=== PATIENT | male | born 1940 | race Caucasian/White ===

== ENCOUNTER 2018-07-09 07:53 | Day surgery (SDC) | payer OTHER ==
[2018-07-02 14:15] VITALS: BMI 24.6
[2018-07-09] MEDS ORDERED: PROPOFOL 20 ML ONE (08:07)
[2018-07-09 10:45] VITALS: TEMP 97.6
[2018-07-09 10:49] VITALS: BP 139/81; PULSE 68
--- NOTE | 2018-07-10 16:56 | PATH ---
Surgical Pathology Report Patient Name: TIMMY SINGH [facility]. Rec. #: [id number] /Age/Gender: 1940 (Age: 78) / M Account: [id number] Location: [facility]SURGERY Taken: 07/09/2018 Received: 07/09/2018 Reported: 07/10/2018 Physicians: Jose Luis Bishop M.D. Specimen(s) Received A: BX DUODENUM B: BX ANTRUM Clinical History GERD Postoperative diagnosis: Moderate gastritis, duodenitis, duodenal erosions Final Diagnosis A. DUODENUM, BIOPSY: DUODENAL MUCOSA WITH MILD ACUTE AND CHRONIC DUODENITIS. B. STOMACH, ANTRUM, BIOPSY: GASTRIC ANTRAL MUCOSA WITH SEVERE CHRONIC ACTIVE GASTRITIS. IMMUNOHISTOCHEMICAL STAIN FOR H. PYLORI IS POSITIVE (NUMEROUS). Electronically Signed Beba Servin M.D. Gross Description A. Received in formalin, labeled "duodenum" is a sanchez, irregular portion of soft tissue measuring 0.3 cm. in greatest dimension. The specimen is submitted in toto in one cassette. B. Received in formalin, labeled "antrum" are 2 sanchez, irregular portions of soft tissue measuring 0.2 and 0.4 cm. in greatest dimension. The specimens are submitted in toto in one cassette. 07/09/2018 saudi07/09/2018
== END 2018-07-09 10:35 | disposition home or self-care (01) ==
LOC: FASU-ENDO 07:53
PROVIDERS: ATTEND Internal Medicine Gastroenterology
PROC: 0DB98ZX Excision of Duodenum, Via Natural or Artificial Opening Endoscopic, Diagnostic (ICD-10-PCS; principal; 2018-07-09 09:36)
PROC: 0DB68ZX Excision of Stomach, Via Natural or Artificial Opening Endoscopic, Diagnostic (ICD-10-PCS; 2018-07-09 09:36)
DX: K29.50 Unspecified chronic gastritis without bleeding (principal); B96.81 Helicobacter pylori [H. pylori] as the cause of diseases classified elsewhere; K57.80 Diverticulitis of intestine, part unspecified, with perforation and abscess without bleeding; R12 Heartburn
CPT/HCPCS: 82962; 88305-TC; 88342-TC

== ENCOUNTER 2018-10-23 17:31 | Inpatient (IN) | payer OTHER ==
--- NOTE | 2018-10-23 18:05 | PDOC ---
Rapid Medical Evaluation Chief Complaint: Edema Time Seen by Provider: 10/23/18 17:45 Medical Evaluation: Allergies Allergy/AdvReac Type Severity Reaction Status Date / Time No Known Drug Allergies Allergy Verified 10/23/18 17:38 Vital Signs Temp Pulse Resp BP Pulse Ox 97.2 F L 93 H 18 107/63 96 10/23/18 17:39 10/23/18 17:39 10/23/18 17:39 10/23/18 17:39 10/23/18 17:39 10/23/18 18:02 Pt c/o: ble edema, left hand swelling, mild sob, ? chf Exam: 2 + ble edema, 2+ rt hand swelling, 96 % on ra. LCTA Plan: cxr, labs, ekg, ua Discharge Disposition - Diagnosis Edema - Referrals - Patient Instructions - Post Discharge Activity
[2018-10-23 18:36] LABS: BASO % 0.8 % (0-2.0); EOS % 3.1 % (0-4.5); HEMATOCRIT 44.1 % (35.4-49); HEMOGLOBIN 15.1 GM/dL (11.7-16.9); LYMPH % 20.1 % (8-40); MCH 31.1 pg (25.7-33.7); MCHC 34.2 g/dl (32.0-35.9); MEAN CELL VOLUME 90.9 fl (80-96); MEAN PLT VOLUME 8.9 fl (7.5-11.1); MONO % 10.4 % (3.8-10.2); NEUT % 65.6 % (42.8-82.8); PLATELET COUNT 250 K/MM3 (134-434); RBC 4.85 M/mm3 (4.00-5.60); RDW 14.5 % (11.9-15.9); WHITE BLOOD COUNT 5.7 K/mm3 (4.0-10.0)
[2018-10-23 19:05] LABS: ALBUMIN 1.6 g/dl (3.4-5.0); ALK PHOS 93 U/L (45-117); BILIRUBIN,TOTAL 0.7 mg/dL (0.2-1); BLOOD UREA NITROGEN 43 mg/dL (7-18); CALCIUM 8.8 mg/dL (8.5-10.1); CHLORIDE 105 mmol/L (98-107); CO2 24 mmol/L (21-32); CREATININE 0.9 mg/dL (0.55-1.3); GLUCOSE,RANDOM 124 mg/dL (74-106); SGPT/ALT 15 U/L (13-61); SODIUM 137 mmol/L (136-145); TOT PROT 4.7 g/dl (6.4-8.2)
[2018-10-23 19:06] LABS: ANION GAP 7 MMOL/L (8-16); SGOT/AST 21 U/L (15-37)
--- NOTE | 2018-10-23 19:41 | PDOC ---
History of Present Illness <Lori Romero - Last Filed: 10/24/18 02:00> - General History Source: Patient Exam Limitations: No Limitations - History of Present Illness Initial Comments: 10/23/18 19:41 78yM hx of afib on xerolto, CHF sp PM, CVA, htn, HL, thyroid disease, presents with a complaint of edema. The patient states that he has had increasing edema over the last several weeks that comes and goes sometimes improves with Lasix. The patient states that he has had his Lasix dose increased from 40 mg daily to 40 mg twice a day over the last 2 weeks with some mild improvement. He endorses some difficulty walking due to his chronic back pain as well as mild shortness of breath denies any associated chest pain, nausea, vomiting, diaphoresis, abdominal Pain, back pain, lightheadedness, orthopnea patient notes that his swelling is worse in his legs as well as his hands. Denies any fever, chills, cough, hemoptysis. PMD: Dr. Obregon Network Engineer Administrator: Dr. Grace <Remberto Nava - Last Filed: 10/24/18 03:54> - General Chief Complaint: Edema Stated Complaint: WEAKNESS Time Seen by Provider: 10/23/18 17:45 Past History <Lori Romero - Last Filed: 10/24/18 02:00> - Past Medical History Anemia: No Asthma: No Cancer: No Cardiac Disorders: Yes ([place], pacemaker) CVA: Yes (2014) COPD: No CHF: No Dementia: No Diabetes: Yes GI Disorders: Yes (C/O BLOOD IN EFFIE X3 LAST WEEK) Disorders: No HTN: Yes Hypercholesterolemia: Yes Liver Disease: No Seizures: No Thyroid Disease: Yes - Surgical History Abdominal Surgery: No Appendectomy: No Cardiac Surgery: Yes (bypass, pacemaker) Cholecystectomy: No Lung Surgery: No Neurologic Surgery: No Orthopedic Surgery: No - Immunization History Immunization Up to Date: Yes - Suicide/Smoking/Psychosocial Hx Smoking History: Never smoked Have you smoked in the past 12 months: No Number of Cigarettes Smoked Daily: 0 Hx Alcohol Use: No Drug/Substance Use Hx: No Substance Use Type: None Hx Substance Use Treatment: No <Remberto Nava - Last Filed: 10/24/18 03:54> - Past Medical History Allergies/Adverse Reactions: Allergies Allergy/AdvReac Type Severity Reaction Status Date / Time No Known Drug Allergies Allergy Verified 10/23/18 17:38 Home Medications: Ambulatory Orders Carvedilol 25 mg PO BID tablet 01/09/17 Spironolactone 25 mg PO DAILY tablet 01/09/17 Multivitamins [Multivit ([facility] Formulary)] 1 tab PO DAILY 01/06/18 Rivaroxaban [Xarelto -] 20 mg PO DAILY 01/06/18 Ubidecarenone [Coq-10] 1 each PO BID 01/06/18 Levothyroxine [Synthroid -] 50 mcg PO DAILY 01/09/18 Sacubitril/Valsartan [Entresto 24 mg-26 mg Tablet] 1 each PO BID 07/02/18 Review of Systems - Review of Systems Able to Perform ROS?: Yes Comments:: 10/23/18 20:31 Constitutional - no reported Fever, Chills, HEENT: no reported vision changes, sore throat Respiratory: +Sob no reported cough, hemoptysis Cardiac: no reported chest pain, palpitations, light headedness, Abd/GI: no reported abd pain, nausea, vomiting, blood per rectum, melena, diarrhea : no reported dysuria, frequency, discharge Musculskelatal - +edema no reported back pain, joint swelling skin - no reported bruising, erythema, rash neurological: no reported headache, numbness, focal weakness, tingling, ataxia, hematologic: no reported easy bruising, easy bleeding <Remberto Nava - Last Filed: 10/24/18 03:54> *Physical Exam - Vital Signs Last Vital Signs Temp Pulse Resp BP Pulse Ox 97.2 F L 93 H 18 107/63 96 10/23/18 17:39 10/23/18 17:39 10/23/18 17:39 10/23/18 17:39 10/23/18 17:39 <Lori Romero - Last Filed: 10/24/18 02:00> - Vital Signs Last Vital Signs Temp Pulse Resp BP Pulse Ox 97.2 F L 93 H 18 107/63 96 10/23/18 17:39 10/23/18 17:39 10/23/18 17:39 10/23/18 17:39 10/23/18 17:39 - Physical Exam Comments: 10/23/18 20:28 GENERAL: The patient is awake, alert, and fully oriented, Nontoxic - in no acute distress. HEAD: Normocephalic, atraumatic. EYES: extraocular movements intact, sclera anicteric, conjunctiva clear. ENT: Normal voice, Moist mucous membranes. NECK: Normal range of motion, supple LUNGS: Diminished breath sounds at the right base, speaking complete sentences without shortness of breath or any distress HEART: Irregularly irregular, PM in L chest ABDOMEN: Soft, nontender, normoactive bowel sounds. No guarding, no rebound. . No CVA tenderness EXTREMITIES: Normal range of motion, pitting edema in the hand as well as the lower extremities +1, no Homans, no calf tenderness NEUROLOGICAL: No facial assymetry, Normal speech, PSYCH: Normal mood, normal affect. SKIN: Warm, Dry, normal turgor, <Remberto Nava - Last Filed: 10/24/18 03:54> Moderate Sedation - Procedure Monitoring Vital Signs: Procedure Monitoring Vital Signs Temperature 97.2 F L 10/23/18 17:39 Pulse Rate 93 H 10/23/18 17:39 Respiratory Rate 18 10/23/18 17:39 Blood Pressure 107/63 10/23/18 17:39 O2 Sat by Pulse Oximetry (%) 96 10/23/18 17:39 <Lori Romero - Last Filed: 10/24/18 02:00> - Procedure Monitoring Vital Signs: Procedure Monitoring Vital Signs Temperature 97.2 F L 10/23/18 17:39 Pulse Rate 93 H 10/23/18 17:39 Respiratory Rate 18 10/23/18 17:39 Blood Pressure 107/63 10/23/18 17:39 O2 Sat by Pulse Oximetry (%) 96 10/23/18 17:39 <Tae Navaan - Last Filed: 10/24/18 03:54> Heart Score/ECG Review - ECG Impressions Comment:: 10/24/18 03:50 Twelve-lead EKG was performed and reviewed by me. Atrial sensed ventricualrpaced rhythm rate of 97 <BrandyRemberto - Last Filed: 10/24/18 03:54> ED Treatment Course - LABORATORY CBC & Chemistry Diagram: 10/23/18 18:08 10/23/18 18:08 - ADDITIONAL ORDERS Additional order review: Laboratory Results 10/23/18 10/23/18 10/23/18 18:08 18:08 18:08 Sodium 137 Potassium 5.0 Chloride 105 Carbon Dioxide 24 Anion Gap 7 L BUN 43 H Creatinine 0.9 Creat Clearance w eGFR > 60 Random Glucose 124 H Calcium 8.8 Total Bilirubin 0.7 AST 21 ALT 15 Alkaline Phosphatase 93 Creatine Kinase 196 Creatine Kinase Index 4.5 CK-MB (CK-2) 8.9 H Troponin I < 0.02 B-Natriuretic Peptide 96023.2 H Total Protein 4.7 L Albumin 1.6 L Urine Color Urine Appearance Urine pH Ur Specific [place] Urine Protein Urine Glucose (UA) Urine Ketones Urine Blood Urine Nitrite Urine Bilirubin Urine Urobilinogen Ur Leukocyte Esterase Urine WBC (Auto) Urine RBC (Auto) Ur Epithelial Cells Urine Bacteria Hyaline Casts Urine Mucus 10/23/18 17:49 Sodium Potassium Chloride Carbon Dioxide Anion Gap BUN Creatinine Creat Clearance w eGFR Random Glucose Calcium Total Bilirubin AST ALT Alkaline Phosphatase Creatine Kinase Creatine Kinase Index CK-MB (CK-2) Troponin I B-Natriuretic Peptide Total Protein Albumin Urine Color Yellow Urine Appearance Clear Urine pH 6.0 Ur Specific [place] 1.012 Urine Protein 3+ H Urine Glucose (UA) 1+ H Urine Ketones Negative Urine Blood 1+ H Urine Nitrite Negative Urine Bilirubin Negative Urine Urobilinogen Negative Ur Leukocyte Esterase Negative Urine WBC (Auto) 2 Urine RBC (Auto) 10 Ur Epithelial Cells Rare Urine Bacteria Rare Hyaline Casts 33 Urine Mucus Rare 10/23/18 18:08 RBC 4.85 MCV 90.9 MCHC 34.2 RDW 14.5 MPV 8.9 Neutrophils % 65.6 Lymphocytes % 20.1 Monocytes % 10.4 H Eosinophils % 3.1 D Basophils % 0.8 - RADIOLOGY Radiograph Interpretation: EXAM: CT chest without contrast IMAGES:[id number] DATE OF EXAM: 2018-10-24 00:41:30 REASON FOR EXAM: Shortness of breath COMPARISON: None Findings: Large right and tiny left pleural effusions. Mild pulmonary edema. 3 mm right upper lobe nodule. Scattered atelectasis and fibrotic changes in the remainder of the lungs. No obvious infiltrates. No pneumothorax. Cardiomegaly without significant pericardial effusion. Mild anasarca. Mild bilateral gynecomastia. Cholelithiasis. Overall findings suggestive of mild CHF. THIS DOCUMENT HAS BEEN ELECTRONICALLY SIGNED Bowen Morales Vanson , MD 10/24/2018 01:05 EST Documentation prepared by Lori Romero, acting as medical record administrator for Remberto Nava MD - Medications Given in the ED: ED Medications Discontinued Medications Generic Name Dose Route Start Last Admin Trade Name Aline PRN Reason Stop Dose Admin Acetaminophen 975 mg 10/23/18 21:38 10/23/18 22:53 Tylenol - PO 10/23/18 21:39 975 mg ONCE ONE Administration Furosemide 40 mg 10/23/18 20:07 10/23/18 20:27 Lasix Injection - IVPUSH 10/23/18 20:08 40 mg ONCE ONE Administration <Lori Romero - Last Filed: 10/24/18 02:00> - LABORATORY CBC & Chemistry Diagram: 10/23/18 18:08 10/23/18 18:08 - ADDITIONAL ORDERS Additional order review: Laboratory Results 10/23/18 10/23/18 10/23/18 18:08 18:08 18:08 Sodium 137 Potassium 5.0 Chloride 105 Carbon Dioxide 24 Anion Gap 7 L BUN 43 H Creatinine 0.9 Creat Clearance w eGFR > 60 Random Glucose 124 H Calcium 8.8 Total Bilirubin 0.7 AST 21 ALT 15 Alkaline Phosphatase 93 Creatine Kinase 196 Creatine Kinase Index 4.5 CK-MB (CK-2) 8.9 H Troponin I < 0.02 B-Natriuretic Peptide 91583.2 H Total Protein 4.7 L Albumin 1.6 L 10/23/18 18:08 RBC 4.85 MCV 90.9 MCHC 34.2 RDW 14.5 MPV 8.9 Neutrophils % 65.6 Lymphocytes % 20.1 Monocytes % 10.4 H Eosinophils % 3.1 D Basophils % 0.8 <Remberto Nvaa - Last Filed: 10/24/18 03:54> Medical Decision Making - Medical Decision Making 10/23/18 20:33 Differential for the patient's symptoms includes ACS, acute on chronic CHF, pneumonia The patient's blood work was obtained in R knee, his blood work is unremarkable beside elevated BNP. His chest x-ray no significant signs of congestion, + cardiomegaly. We'll give the patient a dose of Lasix and we'll reassess if the patient is still short of breath or dyspneic will admit for further management 10/24/18 02:[address] reveals a large right pleural effusion, will admit the patient for further management of CHF and pleural effusion case was discussed with CARE ATTENDANT agree with admissino to [facility] Case discussed in detail with admitting physician including history, physical exam and ancillary studies. Admitting physician has assumed care for the patient, will follow all pending diagnostics and will complete the evaluation and treatment. <Remberto Nava - Last Filed: 10/24/18 03:54> *DC/Admit/Observation/Transfer <Lori Romero - Last Filed: 10/24/18 02:00> - Discharge Dispostion Decision to Admit order: Yes <Remberto Nava - Last Filed: 10/24/18 03:54> Diagnosis at time of Disposition: Pleural effusion on right Edema Qualifiers: Edema type: unspecified Qualified Code(s): R60.9 - Edema, unspecified Congestive heart failure Qualifiers: Heart failure type: other Qualified Code(s): I50.9 - Heart failure, unspecified - Discharge Dispostion Condition at time of disposition: Stable
[2018-10-23] MEDS ORDERED: FUROSEMIDE 40 MG/4 ML INJECTABLE VIAL IVPUSH ONE (20:07)
[2018-10-23] MEDS ORDERED: FUROSEMIDE 40 MG/4 ML INJECTABLE VIAL ONE (20:20)
[2018-10-23] MEDS ORDERED: ACETAMINOPHEN 325 MG TABLET (FP) PO ONE (21:38)
[2018-10-23] MEDS ORDERED: ACETAMINOPHEN 325 MG TABLET (FP) ONE (22:45)
[2018-10-23 23:14] LABS: URINE APPEARANCE CLEAR; URINE BILIRUBIN NEGATIVE (<2.0 mg/dL); URINE COLOR YELLOW; URINE GLUCOSE (UA) 1+ (NEGATIVE); URINE KETONE NEGATIVE (NEGATIVE); URINE LEUK ESTERASE NEGATIVE (NEGATIVE); URINE NITRITE NEGATIVE (NEGATIVE); URINE PROTEIN 3+ (NEGATIVE); URINE UROBILINOGEN NEGATIVE mg/dL (0.2-1.0)
[2018-10-23 23:25] LABS: EPI CELLS RARE /HPF (FEW); URINE BACTERIA RARE /hpf (NONE SEEN); URINE HYALINE CAST 33 /lpf; URINE MUCUS RARE
--- NOTE | 2018-10-24 02:21 | HP ---
Admitting History and Physical - Primary Care Physician PCP: Dayo Grace - Admission Chief Complaint: SOB, Upper and Lower Extremity Swelling History of Present Illness: This is a 78 y/o man with a past medical history of Afib (on Xarelto), CHF, HTN , HLD, Thyroid, CVA (no residual), Spinal Stenosis, DJD, WAINWRIGHT. Who presents to the ED for SOB, upper and lower extremity swelling x several weeks. The patient' s reports that the Lasix was changed to BID secondary to increased edema. The patient reports increased SOB, [place] worse today. Patient denies fever, chills , dizziness, CP, palpitations, AP, N/V/D, constipation, dysuria. 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 Cardiovascular: Yes: AFIB, CHF, HTN, Hyperlipdemia Musculoskeletal: Yes: Other (spinal stenosis DJD) Endocrine: Yes: Hypothyroidism - Past Surgical History Past Surgical History: Yes: Permanent Pacemaker - Smoking History Smoking history: Never smoked Have you smoked in the past 12 months: No Aproximately how many cigarettes per day: 0 - Alcohol/Substance Use Hx Alcohol Use: No History of Substance Use: reports: None - Social History Usual Living Arrangement: Yes: With Spouse ADL: Family Assistance History of Recent Travel: No Home Medications - Allergies Allergies/Adverse Reactions: Allergies Allergy/AdvReac Type Severity Reaction Status Date / Time No Known Drug Allergies Allergy Verified 10/23/18 17:38 - Home Medications Home Medications: Ambulatory Orders Carvedilol 25 mg PO BID tablet 01/09/17 Spironolactone 25 mg PO DAILY tablet 01/09/17 Multivitamins [Multivit ([facility] Formulary)] 1 tab PO DAILY 01/06/18 Rivaroxaban [Xarelto -] 20 mg PO DAILY 01/06/18 Ubidecarenone [Coq-10] 1 each PO BID 01/06/18 Levothyroxine [Synthroid -] 50 mcg PO DAILY 01/09/18 Sacubitril/Valsartan [Entresto 24 mg-26 mg Tablet] 1 each PO BID 07/02/18 Tramadol HCl 50 mg PO PRN PRN 10/24/18 Family Disease History - Family Disease History Family Disease History: Diabetes: Mother, Heart Disease: Father (MS agte 57), Brother (Heart Virus, ), Sister (MS in 60's age 81), CA: Brother Review of Systems - Review of Systems Constitutional: reports: Weakness Eyes: reports: No Symptoms HENT: reports: No Symptoms Neck: reports: No Symptoms Cardiovascular: reports: Edema, Shortness of Breath Respiratory: reports: Cough, SOB, SOB on Exertion Gastrointestinal: reports: No Symptoms Genitourinary: reports: No Symptoms Breasts: reports: No Symptoms Reported Musculoskeletal: reports: Back Pain, Muscle Weakness Integumentary: reports: No Symptoms Neurological: reports: Weakness Endocrine: reports: No Symptoms Hematology/Lymphatic: reports: No Symptoms Psychiatric: reports: No Symptoms Physical Examination Vital Signs: Vital Signs Temperature 97.2 F L 10/23/18 17:39 Pulse Rate 93 H 10/23/18 17:39 Respiratory Rate 18 10/23/18 17:39 Blood Pressure 107/63 10/23/18 17:39 O2 Sat by Pulse Oximetry (%) 96 10/23/18 17:39 Constitutional: Yes: No Distress, Calm Eyes: Yes: WNL, Conjunctiva Clear, EOM Intact, PERRL HENT: Yes: WNL Neck: Yes: WNL, Supple, Trachea Midline Cardiovascular: Yes: Regular Rate and Rhythm, S1, S2 Respiratory: Yes: Diminished (bilaterally), On Nasal O2, Rhonchi, SOB on Exertion Gastrointestinal: Yes: Normal Bowel Sounds, Soft. No: Tenderness ...Rectal Exam: Yes: Deferred Renal/: Yes: WNL Breast(s): Yes: WNL Musculoskeletal: Yes: Back Pain Extremities: Yes: WNL Edema: Yes Edema: LUE: 1+, RUE: 1+, LLE: 2+, RLE: 2+ Peripheral Pulses WNL: Yes Integumentary: Yes: WNL Neurological: Yes: Alert, Oriented, Cran Nerves II-XII Intact ...Motor Strength: WNL Psychiatric: Yes: WNL, Alert, Oriented Labs: CBC, BMP 10/23/18 18:08 10/23/18 18:08 Laboratory Results - last 24 hr 10/23/18 10/23/18 10/23/18 17:49 18:08 18:08 WBC 5.7 RBC 4.85 Hgb 15.1 Hct 44.1 MCV 90.9 MCH 31.1 MCHC 34.2 RDW 14.5 Plt Count 250 MPV 8.9 Absolute Neuts (auto) 3.7 Neutrophils % 65.6 Lymphocytes % 20.1 Monocytes % 10.4 H Eosinophils % 3.1 D Basophils % 0.8 Nucleated RBC % 0 Sodium 137 Potassium 5.0 Chloride 105 Carbon Dioxide 24 Anion Gap 7 L BUN 43 H Creatinine 0.9 Creat Clearance w eGFR > 60 Random Glucose 124 H Calcium 8.8 Phosphorus Magnesium Total Bilirubin 0.7 AST 21 ALT 15 Alkaline Phosphatase 93 Creatine Kinase Creatine Kinase Index CK-MB (CK-2) Troponin I B-Natriuretic Peptide Total Protein 4.7 L Albumin 1.6 L Urine Color Yellow Urine Appearance Clear Urine pH 6.0 Ur Specific [place] 1.012 Urine Protein 3+ H Urine Glucose (UA) 1+ H Urine Ketones Negative Urine Blood 1+ H Urine Nitrite Negative Urine Bilirubin Negative Urine Urobilinogen Negative Ur Leukocyte Esterase Negative Urine WBC (Auto) 2 Urine RBC (Auto) 10 Ur Epithelial Cells Rare Urine Bacteria Rare Hyaline Casts 33 Urine Mucus Rare 10/23/18 10/23/18 10/24/18 18:08 18:08 02:47 WBC RBC Hgb Hct MCV MCH MCHC RDW Plt Count MPV Absolute Neuts (auto) Neutrophils % Lymphocytes % Monocytes % Eosinophils % Basophils % Nucleated RBC % Sodium Potassium Chloride Carbon Dioxide Anion Gap BUN Creatinine Creat Clearance w eGFR Random Glucose Calcium Phosphorus Magnesium Total Bilirubin AST ALT Alkaline Phosphatase Creatine Kinase 196 124 Creatine Kinase Index 4.5 CK-MB (CK-2) 8.9 H Troponin I < 0.02 0.03 B-Natriuretic Peptide 92216.2 H Total Protein Albumin Urine Color Urine Appearance Urine pH Ur Specific [place] Urine Protein Urine Glucose (UA) Urine Ketones Urine Blood Urine Nitrite Urine Bilirubin Urine Urobilinogen Ur Leukocyte Esterase Urine WBC (Auto) Urine RBC (Auto) Ur Epithelial Cells Urine Bacteria Hyaline Casts Urine Mucus Intake & Output 10/21/18 10/22/18 10/23/18 10/24/18 23:59 23:59 23:59 23:59 Weight 79.379 kg Current Medications Generic Name Dose Route Start Last Admin Trade Name Freq PRN Reason Stop Dose Admin Carvedilol 25 mg 10/24/18 10:00 Coreg - PO BID GAIL Finasteride 5 mg 10/24/18 10:00 Proscar - PO DAILY GAIL Furosemide 40 mg 10/24/18 09:07 Lasix - PO BID@0600,1400 GAIL Glipizide 10 mg 10/24/18 10:00 Glucotrol - PO BIDAC GAIL Levothyroxine Sodium 50 mcg 10/24/18 07:00 Synthroid - PO DAILY@0700 GAIL Multivitamins/Minerals/Vitamin C 1 tab 10/24/18 10:00 Tab-A-Vit - PO DAILY [facility] Non-Formulary Medication 1 each 10/24/18 10:00 Ubidecarenone [Coq-10] PO BID GAIL Rivaroxaban 20 mg 10/24/18 10:00 Xarelto - PO DAILY GAIL Sacubitril/Valsartan 1 tab 10/24/18 10:00 Entresto 24 Mg-26 Mg Tablet PO BID GAIL Spironolactone 25 mg 10/24/18 10:00 Aldactone - PO DAILY GAIL Tamsulosin HCl 0.4 mg 10/24/18 08:30 Flomax - PO DAILY@0830 [facility] Tramadol HCl 50 mg 10/24/18 09:15 Ultram - PO DAILY PRN PAIN LEVEL 7 - 10 Imaging - Results Chest X-ray: Report Reviewed, Image Reviewed Cat Scan: Report Reviewed, Image Reviewed Other: Image Reviewed Problem List - Problems (1) Acute exacerbation of CHF (congestive heart failure) Code(s): I50.9 - HEART FAILURE, UNSPECIFIED (2) SOB (shortness of breath) Code(s): R06.02 - SHORTNESS OF BREATH (3) Pleural effusion on right Code(s): J90 - PLEURAL EFFUSION, NOT ELSEWHERE CLASSIFIED (4) Edema Code(s): R60.9 - EDEMA, UNSPECIFIED Qualifiers: Edema type: unspecified Qualified Code(s): R60.9 - Edema, unspecified (5) Afib Code(s): I48.91 - UNSPECIFIED ATRIAL FIBRILLATION (6) HTN (hypertension) Code(s): I10 - ESSENTIAL (PRIMARY) HYPERTENSION (7) HLD (hyperlipidemia) Code(s): E78.5 - HYPERLIPIDEMIA, UNSPECIFIED (8) CVA (cerebral vascular accident) Code(s): I63.9 - CEREBRAL INFARCTION, UNSPECIFIED (9) Spinal stenosis at L4-L5 level Code(s): M48.061 - SPINAL STENOSIS, LUMBAR REGION WITHOUT NEUROGENIC CB (10) WAINWRIGHT (hard of hearing) Code(s): H91.90 - UNSPECIFIED HEARING LOSS, UNSPECIFIED EAR Assessment/Plan This is a 78 y/o man with a PMHx of: Afib (on Xarelto), CHF, HTN, HLD, CVA (no residual), Hypothyroid, Spinal Stenosis, DJD admitted to Telemetry for Acute CHF Exacerbation, Pleural effusion, for further evaluation of their emergent condition. Plan: Will admit to Telemetry Continue cardiac monitoring Appreciate Cardiology consult Appreciate Pulmonology Consult Chest Xray- progressive R pleural effusion, large heart Chest CT- cardiomegaly, mild congestion, B/L pleural effusion R > L, cholelithiasis EKG- Paced Rhythm BNP [id number] Lasix given in ED, will continue Strict INOs Daily weight Monitor CBC, BMP Afib- [id number], Continue Xarelto HTN- stable, monitor BP, continue home meds with parameters, monitor renal function HLD- stable, continue statin, monitor LFTs CVA- Continue home meds Hypothyroid- Continue Levothyroxine Will need PT eval secondary to generalized weakness, ambulates with walking stick Consider STR Fall Precautions FEN- Fluid Restrictions 1L, Replete lytes prn, Low Na Diet DVT ppx- OOB, TEDs, Continue Xarelto Code Status: Full Code Dispo: Requires Inpatient Care Visit type - Emergency Visit Emergency Visit: Yes ED Registration Date: 10/23/18 Care time: The patient presented to the Emergency Department on the above date and was hospitalized for further evaluation of their emergent condition. - New Patient This patient is new to me today: Yes Date on this admission: 10/24/18 - Critical Care Critical Care patient: No
[2018-10-24 07:00] LABS: EOS % 4.4 % (0-4.5); HEMOGLOBIN 13.5 GM/dL (11.7-16.9); LYMPH % 30.4 % (8-40); MCH 31.4 pg (25.7-33.7); MCHC 34.6 g/dl (32.0-35.9); MEAN CELL VOLUME 90.6 fl (80-96); MEAN PLT VOLUME 9.1 fl (7.5-11.1); MONO % 15.6 % (3.8-10.2); NEUT % 48.6 % (42.8-82.8); PLATELET COUNT 194 K/MM3 (134-434); RDW 14.4 % (11.9-15.9); WHITE BLOOD COUNT 4.5 K/mm3 (4.0-10.0)
[2018-10-24 08:05] LABS: ANION GAP 10 MMOL/L (8-16); BLOOD UREA NITROGEN 43 mg/dL (7-18); CALCIUM 7.8 mg/dL (8.5-10.1); CHLORIDE 107 mmol/L (98-107); CO2 22 mmol/L (21-32); CREATININE 0.9 mg/dL (0.55-1.3); GLUCOSE,RANDOM 100 mg/dL (74-106); MAGNESIUM 1.9 mg/dL (1.8-2.4); PHOSPHOROUS 4.1 mg/dL (2.5-4.9); POTASSIUM 4.6 mmol/L (3.5-5.1); SODIUM 139 mmol/L (136-145)
[2018-10-24] MEDS ORDERED: traMADol HCL 50 MG TABLET PO PRN (09:15)
[2018-10-24] MEDS: LEVOTHYROXINE NA 50 MCG TABLET (FP) PO SCH ×2 (09:47→10:06)
[2018-10-24] MEDS: TAMSULOSIN HCL 0.4 MG CAP PO SCH (09:47)
[2018-10-24] MEDS: SACUBITRIL/VALSARTAN 24 MG-26 MG TABLET PO SCH ×3 (09:48→22:59)
[2018-10-24] MEDS: CARVEDILOL 25 MG TABLET (FP) PO SCH ×3 (09:48→22:59)
[2018-10-24] MEDS: glipiZIDE 10 MG TABLET (FP) PO SCH ×2 (09:48→17:23)
[2018-10-24] MEDS: MULTIVITAMINS (DAILY MVI) TABLET (FP) PO SCH (09:48)
[2018-10-24] MEDS: FUROSEMIDE 40 MG TABLET (FP) PO SCH ×3 (09:48→15:52)
[2018-10-24] MEDS: RIVAROXABAN 20 MG TABLET PO SCH (09:48)
[2018-10-24] MEDS: SPIRONOLACTONE 25 MG TABLET (FP) PO SCH (09:48)
[2018-10-24] MEDS: FINASTERIDE 5 MG TABLET (FP) PO SCH (09:48)
[2018-10-24] MEDS ORDERED: UBIDECARENONE PO SCH (10:00)
--- NOTE | 2018-10-24 12:49 | CON.CARD ---
Consult - History of Present Illness History of Present Illness: 78 y/o man with a past medical history of Afib (on Xarelto), CHF, HTN, HLD, Thyroid, CVA (no residual), Spinal Stenosis, DJD, [place]. Who presents to the ED for SOB, upper and lower extremity swelling x several weeks. The patient's reports that the Lasix was changed to BID secondary to increased edema. The patient reports increased SOB, [place] worse today. Patient denies fever, chills, dizziness, CP, palpitations, AP, N/V/D, constipation, dysuria. Chest CT showed bilateral effusions and CHF. 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 Cardio/Vascular: Yes: AFIB, CHF, HTN, Hyperlipdemia Musculoskeletal: Yes: Other (spinal stenosis DJD) Endocrine: Yes: Hypothyroidism - Past Surgical History Past Surgical History: Yes: Permanent Pacemaker - Alcohol/Substance Use Hx Alcohol Use: No History of Substance Use: reports: None - Smoking History Smoking history: Never smoked Have you smoked in the past 12 months: No Aproximately how many cigarettes per day: 0 - Social History ADL: Family Assistance History of Recent Travel: No Home Medications - Allergies Allergies/Adverse Reactions: Allergies Allergy/AdvReac Type Severity Reaction Status Date / Time No Known Drug Allergies Allergy Verified 10/23/18 17:38 - Home Medications Home Medications: Ambulatory Orders Carvedilol 25 mg PO BID tablet 01/09/17 Spironolactone 25 mg PO DAILY tablet 01/09/17 Multivitamins [Multivit ([facility] Formulary)] 1 tab PO DAILY 01/06/18 Rivaroxaban [Xarelto -] 20 mg PO DAILY 01/06/18 Ubidecarenone [Coq-10] 1 each PO BID 01/06/18 Levothyroxine [Synthroid -] 50 mcg PO DAILY 01/09/18 Sacubitril/Valsartan [Entresto 24 mg-26 mg Tablet] 1 each PO BID 07/02/18 Tramadol HCl 50 mg PO PRN PRN 10/24/18 Family Disease History - Family Disease History Family Disease History: Diabetes: Mother, Heart Disease: Father ([place] agte 57), Brother (Heart Virus, ), Sister ([place] in 60's age 81), [place]: Brother Vital Signs: Vital Signs Temperature 98.5 F 10/24/18 07:17 Pulse Rate 77 10/24/18 10:17 Respiratory Rate 19 10/24/18 07:17 Blood Pressure 93/48 L 10/24/18 10:17 O2 Sat by Pulse Oximetry (%) 98 10/24/18 07:17 - Other Data Labs, Other Data: CBC, BMP 10/24/18 06:30 10/24/18 06:30 Troponin, BNP 10/23/18 10/23/18 10/24/18 18:08 18:08 02:47 Troponin I < 0.02 0.03 B-Natriuretic Peptide 01939.2 H 10/24/18 06:30 Troponin I 0.04 B-Natriuretic Peptide Troponin, BNP 10/23/18 10/23/18 10/24/18 18:08 18:08 02:47 Troponin I < 0.02 0.03 B-Natriuretic Peptide 14269.2 H 10/24/18 06:30 Troponin I 0.04 B-Natriuretic Peptide
--- NOTE | 2018-10-24 15:19 | CON.CARD ---
Cardiology Consult (text) - Consultation Consultation Note: Asked to see this patient well known to Dr. Grace. Please contact his group for cardiac care. DW nurse and with the patients .
--- NOTE | 2018-10-24 15:26 | CON.PULM ---
Consult Consult Specialty:: PULMONARY Referred by:: EARL Reason for Consultation:: SOB - History of Present Illness Chief Complaint: SOB/LEG EDEMA History of Present Illness: 78yM hx of afib on xerolto, CHF sp PM, CVA, htn, HL, thyroid disease, presents with a complaint of edema. The patient states that he has had increasing edema over the last several weeks that comes and goes sometimes improves with Lasix. The patient states that he has had his Lasix dose increased from 40 mg daily to 40 mg twice a day over the last 2 weeks with some mild improvement. He endorses some difficulty walking due to his chronic back pain as well as mild shortness of breath denies any associated chest pain, nausea, vomiting, diaphoresis, abdominal Pain, back pain, lightheadedness, orthopnea patient notes that his swelling is worse in his legs as well as his hands. Denies any fever, chills, cough, hemoptysis. 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 No: O2 Dependent Gastrointestinal: No: Ascites Hepatobiliary: No: Cirrhosis Renal/: No: Renal Failure Heme/Onc: No: Anemia Musculoskeletal: Yes: Other (spinal stenosis DJD) Endocrine: Yes: Hypothyroidism - Past Surgical History Past Surgical History: Yes: Permanent Pacemaker - Alcohol/Substance Use Hx Alcohol Use: No History of Substance Use: reports: None - Smoking History Smoking history: Never smoked Have you smoked in the past 12 months: No Aproximately how many cigarettes per day: 0 - Social History Usual Living Arrangement: With Spouse ADL: Family Assistance Place of : [facility] History of Recent Travel: No Home Medications - Allergies Allergies/Adverse Reactions: Allergies Allergy/AdvReac Type Severity Reaction Status Date / Time No Known Drug Allergies Allergy Verified 10/23/18 17:38 - Home Medications Home Medications: Ambulatory Orders Carvedilol 25 mg PO BID tablet 01/09/17 Spironolactone 25 mg PO DAILY tablet 01/09/17 Multivitamins [Multivit ([facility] Formulary)] 1 tab PO DAILY 01/06/18 Rivaroxaban [Xarelto -] 20 mg PO DAILY 01/06/18 Ubidecarenone [Coq-10] 1 each PO BID 01/06/18 Levothyroxine [Synthroid -] 50 mcg PO DAILY 01/09/18 Sacubitril/Valsartan [Entresto 24 mg-26 mg Tablet] 1 each PO BID 07/02/18 Tramadol HCl 50 mg PO PRN PRN 10/24/18 Family Disease History - Family Disease History Family Disease History: Diabetes: Mother, Heart Disease: Father ([place] agte 57), Brother (Heart Virus, ), Sister ([place] in 60's age 81), [place]: Brother Review of Systems - Review of Systems Constitutional: reports: Lethargy Cardiovascular: reports: Edema. denies: Chest Pain Respiratory: reports: Exercise Intolerance, Orthopnea, SOB, SOB on Exertion. denies: Hemoptysis, Wheezing Physical Exam Vital Sings: Vital Signs Temperature 98.3 F 10/24/18 13:36 Pulse Rate 97 H 10/24/18 13:36 Respiratory Rate 18 10/24/18 13:36 Blood Pressure 110/72 10/24/18 13:36 O2 Sat by Pulse Oximetry (%) 96 10/24/18 13:36 Constitutional: Yes: Calm Eyes: Yes: EOM Intact HENT: Yes: Normocephalic Neck: Yes: Trachea Midline Cardiovascular: Yes: Pulse Irregular, S1, S2 Respiratory: Yes: Diminished (BREATH SOUNDS ON RIGHT BASE EXTENDING 1/3 LUNG FIELD DIMINISHED), Dullness Gastrointestinal: Yes: Normal Bowel Sounds, Soft Edema: LLE: 2+, RLE: 2+ Integumentary: Yes: WNL Neurological: Yes: Alert Psychiatric: Yes: WNL Labs: CBC, BMP 10/24/18 06:30 10/24/18 06:30 REST REVIEWED Imaging - Results Chest X-ray: Report Reviewed, Image Reviewed Cat Scan: Report Reviewed, Image Reviewed EKG: Report Reviewed Problem List - Problems (1) Acute exacerbation of CHF (congestive heart failure) Code(s): I50.9 - HEART FAILURE, UNSPECIFIED (2) Afib Code(s): I48.91 - UNSPECIFIED ATRIAL FIBRILLATION (3) CVA (cerebral vascular accident) Code(s): I63.9 - CEREBRAL INFARCTION, UNSPECIFIED (4) Congestive heart failure Code(s): I50.9 - HEART FAILURE, UNSPECIFIED Qualifiers: Heart failure type: other Qualified Code(s): I50.9 - Heart failure, unspecified (5) Edema Code(s): R60.9 - EDEMA, UNSPECIFIED Qualifiers: Edema type: unspecified Qualified Code(s): R60.9 - Edema, unspecified (6) [place] (hard of hearing) Code(s): H91.90 - UNSPECIFIED HEARING LOSS, UNSPECIFIED EAR (7) HTN (hypertension) Code(s): I10 - ESSENTIAL (PRIMARY) HYPERTENSION (8) Pleural effusion on right Code(s): J90 - PLEURAL EFFUSION, NOT ELSEWHERE CLASSIFIED (9) Spinal stenosis at L4-L5 level Code(s): M48.061 - SPINAL STENOSIS, LUMBAR REGION WITHOUT NEUROGENIC CB Assessment/Plan PATIENT WOULD LIKELY BENEFIT FROM THERAPEUTIC THORACENTESIS OF LARGE VOLUME RIGHT EFFUSION HOWEVER ANTICOAGULATION PRECLUDES THIS AGREE WITH MEDICAL MANAGEMENT OF HIS VOLUME OVERLOAD FOLLOW CXR O2 SUPPLEMENTATION NEEDED RESUME HIS CARDIAC MEDS/CARDIAC CONSULT Seamus GRIGGS MD
[2018-10-24] MEDS ORDERED: glipiZIDE 5 MG TABLET (FP) ONE (15:38)
--- NOTE | 2018-10-24 15:53 | PN ---
Progress Note, Physician Chief Complaint: Worsening upper and lower extremity edema accompanied with SOB History of Present Illness: Previous notes and events reviewed patient examined in bed, awake and alert NAD elev BNP 13,824 CXR show progressive R pleural fluid with enlarged heart - Current Medication List Current Medications: Active Medications Carvedilol (Coreg -) 25 mg PO BID [facility] Last Admin: 10/24/18 10:16 Dose: Not Given Finasteride (Proscar -) 5 mg PO DAILY [facility] Last Admin: 10/24/18 09:48 Dose: 5 mg Furosemide (Lasix -) 40 mg PO BID@0600,1400 [facility] Last Admin: 10/24/18 15:52 Dose: 40 mg Glipizide (Glucotrol -) 10 mg PO BIDAC [facility] Last Admin: 10/24/18 09:48 Dose: 10 mg Levothyroxine Sodium (Synthroid -) 50 mcg PO DAILY@0700 [facility] Last Admin: 10/24/18 10:06 Dose: Not Given Multivitamins/Minerals/Vitamin C (Tab-A-Vit -) 1 tab PO DAILY [facility] Last Admin: 10/24/18 09:48 Dose: 1 tab Non-Formulary Medication (Ubidecarenone [Coq-10]) 1 each PO BID [facility] Rivaroxaban (Xarelto -) 20 mg PO DAILY [facility] Last Admin: 10/24/18 09:48 Dose: 20 mg Sacubitril/Valsartan (Entresto 24 Mg-26 Mg Tablet) 1 tab PO BID [facility] Last Admin: 10/24/18 10:16 Dose: Not Given Spironolactone (Aldactone -) 25 mg PO DAILY [facility] Last Admin: 10/24/18 09:48 Dose: 25 mg Tamsulosin HCl (Flomax -) 0.4 mg PO DAILY@0830 [facility] Last Admin: 10/24/18 09:47 Dose: 0.4 mg Tramadol HCl (Ultram -) 50 mg PO DAILY PRN PRN Reason: PAIN LEVEL 7 - 10 - Objective Vital Signs: Vital Signs Temperature 98.3 F 10/24/18 13:36 Pulse Rate 97 H 10/24/18 13:36 Respiratory Rate 18 10/24/18 13:36 Blood Pressure 110/72 10/24/18 13:36 O2 Sat by Pulse Oximetry (%) 96 10/24/18 13:36 Constitutional: Yes: Well Nourished, Mild Distress Eyes: Yes: Conjunctiva Clear Neck: Yes: Supple Cardiovascular: Yes: Regular Rate and Rhythm Respiratory: Yes: Diminished (R base) Gastrointestinal: Yes: Normal Bowel Sounds, Soft Musculoskeletal: Yes: Muscle Weakness Extremities: Yes: WNL Edema: Yes Edema: LLE: 2+, RLE: 2+ Integumentary: Yes: WNL Neurological: Yes: Alert, Oriented Psychiatric: Yes: Alert, Oriented Labs: CBC, BMP 10/24/18 06:30 10/24/18 06:30 <Anila Castillo - Last Filed: 10/24/18 18:19> - Current Medication List Current Medications: Active Medications Carvedilol (Coreg -) 25 mg PO BID [facility] Last Admin: 10/24/18 22:59 Dose: 25 mg Finasteride (Proscar -) 5 mg PO DAILY [facility] Last Admin: 10/24/18 09:48 Dose: 5 mg Furosemide (Lasix -) 40 mg PO BID@0600,1400 [facility] Last Admin: 10/25/18 06:49 Dose: 40 mg Glipizide (Glucotrol -) 10 mg PO BIDAC [facility] Last Admin: 10/24/18 17:23 Dose: 10 mg Levothyroxine Sodium (Synthroid -) 50 mcg PO DAILY@0700 [facility] Last Admin: 10/25/18 06:48 Dose: 50 mcg Multivitamins/Minerals/Vitamin C (Tab-A-Vit -) 1 tab PO DAILY [facility] Last Admin: 10/24/18 09:48 Dose: 1 tab Non-Formulary Medication (Ubidecarenone [Coq-10]) 1 each PO BID [facility] Rivaroxaban (Xarelto -) 20 mg PO DAILY [facility] Last Admin: 10/24/18 09:48 Dose: 20 mg Sacubitril/Valsartan (Entresto 24 Mg-26 Mg Tablet) 1 tab PO BID [facility] Last Admin: 10/24/18 22:59 Dose: 1 tab Spironolactone (Aldactone -) 25 mg PO DAILY [facility] Last Admin: 10/24/18 09:48 Dose: 25 mg Tamsulosin HCl (Flomax -) 0.4 mg PO DAILY@0830 [facility] Last Admin: 10/24/18 09:47 Dose: 0.4 mg Tramadol HCl (Ultram -) 50 mg PO DAILY PRN PRN Reason: PAIN LEVEL 7 - 10 - Objective Vital Signs: Vital Signs Temperature 97.4 F L 10/25/18 06:00 Pulse Rate 93 H 10/25/18 06:00 Respiratory Rate 20 10/25/18 06:00 Blood Pressure 110/61 10/25/18 06:00 O2 Sat by Pulse Oximetry (%) 96 10/24/18 21:00 Labs: CBC, BMP 10/25/18 06:00 <Dayo Grace - Last Filed: 10/25/18 07:55> Problem List - Problems (1) Acute exacerbation of CHF (congestive heart failure) Code(s): I50.9 - HEART FAILURE, UNSPECIFIED (2) Edema Code(s): R60.9 - EDEMA, UNSPECIFIED Qualifiers: Edema type: unspecified Qualified Code(s): R60.9 - Edema, unspecified (3) HLD (hyperlipidemia) Code(s): E78.5 - HYPERLIPIDEMIA, UNSPECIFIED (4) HTN (hypertension) Code(s): I10 - ESSENTIAL (PRIMARY) HYPERTENSION (5) Pleural effusion on right Code(s): J90 - PLEURAL EFFUSION, NOT ELSEWHERE CLASSIFIED (6) SOB (shortness of breath) Code(s): R06.02 - SHORTNESS OF BREATH <Anila Castillo - Last Filed: 10/24/18 18:19> Assessment/Plan -pulmonology on board, recommendations appreciated-thoracentesis recommended but due to AC therapy consider medical management for fluid overload at present -cont with Lasix BID -O2 NC PRN for SOB or SpO2 <90% -cardiology consult pending -BNP elev, will trend -elev BUN-will consult renal, will trend BUN -cont Xarelto for Afib -low sodium diet <Anila Castillo - Last Filed: 10/24/18 18:19> i agree with the above note patient seen and examined alongside with chris castillo. <Dayo Grace - Last Filed: 10/25/18 07:55>
[2018-10-24 17:31] VITALS: BMI 26.0
--- NOTE | 2018-10-24 19:17 | EKG ---
Test Reason : Blood Pressure : / mmHG Vent. Rate : 097 BPM Atrial Rate : 097 BPM P-R Int : 144 ms QRS Dur : 180 ms QT Int : 444 ms P-R-T Axes : 068 -85 085 degrees QTc Int : 563 ms Atrial-sensed ventricular-paced rhythm Biventricular pacemaker detected ABNORMAL ECG WHEN COMPARED WITH ECG OF 16-AUG-2014 21:56, VENT. RATE HAS DECREASED BY 8 BPM Confirmed by CLAUDIA COLORADO, HILARIO ([id number]) on 10/24/2018 7:17:25 PM Referred By: Confirmed By:HILARIO TAYLOR MD
[2018-10-24] MEDS ORDERED: PT OWN MED DRAWER 7, Y5N ONE (22:33)
[2018-10-25] MEDS ORDERED: glipiZIDE 5 MG TABLET (FP) ONE ×2 (06:39→16:59)
[2018-10-25] MEDS: LEVOTHYROXINE NA 50 MCG TABLET (FP) PO SCH (06:48)
[2018-10-25] MEDS: FUROSEMIDE 40 MG TABLET (FP) PO SCH (06:49)
[2018-10-25 07:31] LABS: HEMATOCRIT 41.1 % (35.4-49); HEMOGLOBIN 13.4 GM/dL (11.7-16.9); MCH 29.7 pg (25.7-33.7); MCHC 32.6 g/dl (32.0-35.9); MEAN CELL VOLUME 91.3 fl (80-96); MEAN PLT VOLUME 8.8 fl (7.5-11.1); PLATELET COUNT 205 K/MM3 (134-434); RBC 4.51 M/mm3 (4.00-5.60); RDW 14.1 % (11.9-15.9); WHITE BLOOD COUNT 5.6 K/mm3 (4.0-10.0)
[2018-10-25] MEDS: glipiZIDE 10 MG TABLET (FP) PO SCH ×2 (08:23→17:03)
[2018-10-25] MEDS: TAMSULOSIN HCL 0.4 MG CAP PO SCH (08:23)
[2018-10-25 08:46] LABS: ALBUMIN 1.2 g/dl (3.4-5.0); ALK PHOS 74 U/L (45-117); ANION GAP 8 MMOL/L (8-16); BILIRUBIN,TOTAL 0.5 mg/dL (0.2-1); BLOOD UREA NITROGEN 43 mg/dL (7-18); CALCIUM 8.1 mg/dL (8.5-10.1); CHLORIDE 107 mmol/L (98-107); CO2 23 mmol/L (21-32); CREATININE 0.8 mg/dL (0.55-1.3); GLUCOSE,RANDOM 82 mg/dL (74-106); N-TERMINAL BNP 17766.2 pg/ml (5-450); POTASSIUM 4.6 mmol/L (3.5-5.1); SGOT/AST 15 U/L (15-37); SGPT/ALT 11 U/L (13-61); SODIUM 138 mmol/L (136-145); TOT PROT 3.7 g/dl (6.4-8.2)
[2018-10-25] MEDS ORDERED: PT OWN MED DRAWER 7, Y5N ONE (09:22)
[2018-10-25] MEDS: MULTIVITAMINS (DAILY MVI) TABLET (FP) PO SCH (10:00)
[2018-10-25] MEDS: RIVAROXABAN 20 MG TABLET PO SCH (10:00)
[2018-10-25] MEDS: CARVEDILOL 25 MG TABLET (FP) PO SCH ×2 (10:00→22:01)
[2018-10-25] MEDS: FINASTERIDE 5 MG TABLET (FP) PO SCH (10:00)
[2018-10-25] MEDS: SACUBITRIL/VALSARTAN 24 MG-26 MG TABLET PO SCH ×2 (10:01→22:01)
[2018-10-25] MEDS: SPIRONOLACTONE 25 MG TABLET (FP) PO SCH (10:01)
[2018-10-25] MEDS ORDERED: FUROSEMIDE 40 MG/4 ML INJECTABLE VIAL IVPUSH ONE ×2 (11:40→20:00)
--- NOTE | 2018-10-25 11:47 | CON.CARD ---
Cardiology Consult (text) - Consultation Consultation Note: cc: sob hpi: 78 m hx cad s/p 2v cabg, ICM/syst chf, biv icd (medtronic), htn, hld, dm, cva, here with sob. Week or so of lewis, le edema. Tried lasix 40 bid but didnt help so came to ER. No cp palps dizzy loc pnd orthopnea. Got iv lasix in er, feels a little better already. Sees me for cardio. pmh: per hpi psh: cabg social: no tob fam: no premature cad ros: per hpi; no nvd fever [place] vision changes muscle pain gib hematuria dysuria meds: Home Medications Medication Instructions Recorded Carvedilol 25 mg PO BID tablet 01/09/17 Spironolactone 25 mg PO DAILY tablet 01/09/17 Multivitamins [Multivit ([facility] 1 tab PO DAILY 01/06/18 Formulary)] Rivaroxaban [Xarelto -] 20 mg PO DAILY 01/06/18 Ubidecarenone [Coq-10] 1 each PO BID 01/06/18 Levothyroxine [Synthroid -] 50 mcg PO DAILY 01/09/18 Sacubitril/Valsartan [Entresto 24 1 each PO BID 07/02/18 mg-26 mg Tablet] Tramadol HCl 50 mg PO PRN PRN 10/24/18 pe: Vital Signs Period Temp Pulse Resp BP Sys/Nunez Pulse Ox Last 24 Hr 97.3 F-98.3 F 90-108 18-20 110-121/61-76 96-96 nad no jvd rrr s1s2 no mrg dec bs right, nl eff aaox3 1+ le edema bl no c/c abd nt nd pos bs no jaundice diaphoresis pos dp pt no carotid bruits Laboratory Last Values WBC 5.6 K/mm3 (4.0-10.0) 10/25/18 06:00 RBC 4.51 M/mm3 (4.00-5.60) 10/25/18 06:00 Hgb 13.4 GM/dL (11.7-16.9) 10/25/18 06:00 Hct 41.1 % (35.4-49) 10/25/18 06:00 MCV 91.3 fl (80-96) 10/25/18 06:00 MCH 29.7 pg (25.7-33.7) 10/25/18 06:00 MCHC 32.6 g/dl (32.0-35.9) 10/25/18 06:00 RDW 14.1 % (11.9-15.9) 10/25/18 06:00 Plt Count 205 K/MM3 (134-434) 10/25/18 06:00 MPV 8.8 fl (7.5-11.1) 10/25/18 06:00 Absolute Neuts (auto) 2.2 K/mm3 (1.5-8.0) 10/24/18 06:30 Neutrophils % 48.6 % (42.8-82.8) D 10/24/18 06:30 Lymphocytes % 30.4 % (8-40) D 10/24/18 06:30 Monocytes % 15.6 % (3.8-10.2) H 10/24/18 06:30 Eosinophils % 4.4 % (0-4.5) 10/24/18 06:30 Basophils % 1.0 % (0-2.0) 10/24/18 06:30 Nucleated RBC % 0 % (0-0) 10/24/18 06:30 ESR 53 mm/hr (0-20) H 10/24/18 12:39 Sodium 138 mmol/L (136-145) 10/25/18 06:00 Potassium 4.6 mmol/L (3.5-5.1) 10/25/18 06:00 Chloride 107 mmol/L (98-107) 10/25/18 06:00 Carbon Dioxide 23 mmol/L (21-32) 10/25/18 06:00 Anion Gap 8 MMOL/L (8-16) 10/25/18 06:00 BUN 43 mg/dL (7-18) H 10/25/18 06:00 Creatinine 0.8 mg/dL (0.55-1.3) 10/25/18 06:00 Creat Clearance w eGFR > 60 (>60) 10/25/18 06:00 POC Glucometer 79 UNITS (80-120) 10/25/18 06:45 Random Glucose 82 mg/dL (74-106) 10/25/18 06:00 Calcium 8.1 mg/dL (8.5-10.1) L 10/25/18 06:00 Phosphorus 4.1 mg/dL (2.5-4.9) 10/24/18 06:30 Magnesium 1.9 mg/dL (1.8-2.4) 10/24/18 06:30 Total Bilirubin 0.5 mg/dL (0.2-1) 10/25/18 06:00 AST 15 U/L (15-37) 10/25/18 06:00 ALT 11 U/L (13-61) L 10/25/18 06:00 Alkaline Phosphatase 74 U/L (45-117) 10/25/18 06:00 Creatine Kinase 120 IU/L (26-308) 10/24/18 06:30 Creatine Kinase Index 4.5 % (0.0-5.0) 10/23/18 18:08 CK-MB (CK-2) 8.9 ng/mL (0.5-3.6) H 10/23/18 18:08 Troponin I 0.04 ng/ml (0.00-0.05) 10/24/18 06:30 C-Reactive Protein 0.3 MG/DL (0.00-0.3) 10/24/18 12:39 B-Natriuretic Peptide 28150.2 pg/ml (5-450) H 10/25/18 06:00 Total Protein 3.7 g/dl (6.4-8.2) L 10/25/18 06:00 Albumin 1.2 g/dl (3.4-5.0) L 10/25/18 06:00 Urine Color Yellow 10/23/18 17:49 Urine Appearance Clear 10/23/18 17:49 Urine pH 6.0 (5.0-8.0) 10/23/18 17:49 Ur Specific [place] 1.012 (1.010-1.035) 10/23/18 17:49 Urine Protein 3+ (NEGATIVE) H 10/23/18 17:49 Urine Glucose (UA) 1+ (NEGATIVE) H 10/23/18 17:49 Urine Ketones Negative (NEGATIVE) 10/23/18 17:49 Urine Blood 1+ (NEGATIVE) H 10/23/18 17:49 Urine Nitrite Negative (NEGATIVE) 10/23/18 17:49 Urine Bilirubin Negative (<2.0 mg/dL) 10/23/18 17:49 Urine Urobilinogen Negative mg/dL (0.2-1.0) 10/23/18 17:49 Ur Leukocyte Esterase Negative (NEGATIVE) 10/23/18 17:49 Urine WBC (Auto) 2 /hpf (3-5) 10/23/18 17:49 Urine RBC (Auto) 10 /hpf (0-3) 10/23/18 17:49 Ur Epithelial Cells Rare /HPF (FEW) 10/23/18 17:49 Urine Bacteria Rare /hpf (NONE SEEN) 10/23/18 17:49 Hyaline Casts 33 /lpf 10/23/18 17:49 Urine Mucus Rare 10/23/18 17:49 echo 2016: lve, lvef 20%, mod dec rv fcn, nl rv size, sev lae, mild chris, mod mr , mild pr, mild-mod tr tele: sr, as-vp software ecg: sr, as-vp software ct chest: chf, large right eff a/p: 78 m hx cad s/p 2v cabg, ICM/syst chf, biv icd (medtronic), htn, hld, dm, cva, pafib here with sob. sob, acute sys chf: -no signs acs -was on lasix 40 bid at home -start lasix 40 iv bid, daily wt, daily bmp -check updated echo -biv icd checked recently as outpt -cont bb, leif cad: -no anginal sxs -cont home meds htn: -cont home meds hld: -cont statin pafib: -on xarelto
--- NOTE | 2018-10-25 12:10 | PN ---
Progress Note, Physician Chief Complaint: SOB Upper and Lower Extremity Swelling History of Present Illness: NAD at beside Coughing during meals as per nursing, says he does that all the time labs unremarkable CT chest mild pleural effusion BNP elevated Seen by cardiology - Current Medication List Current Medications: Active Medications Carvedilol (Coreg -) 25 mg PO BID [facility] Last Admin: 10/25/18 10:00 Dose: 25 mg Finasteride (Proscar -) 5 mg PO DAILY [facility] Last Admin: 10/25/18 10:00 Dose: 5 mg Furosemide (Lasix Injection -) 40 mg IVPUSH ONCE ONE Stop: 10/25/18 20:01 Furosemide (Lasix Injection -) 40 mg IVPUSH BID@0600,1400 [facility] Last Admin: 10/25/18 08:23 Dose: 10 mg Levothyroxine Sodium (Synthroid -) 50 mcg PO DAILY@0700 [facility] Last Admin: 10/25/18 06:48 Dose: 50 mcg Multivitamins/Minerals/Vitamin C (Tab-A-Vit -) 1 tab PO DAILY [facility] Last Admin: 10/25/18 10:00 Dose: 1 tab Rivaroxaban (Xarelto -) 20 mg PO DAILY [facility] Last Admin: 10/25/18 10:00 Dose: 20 mg Sacubitril/Valsartan (Entresto 24 Mg-26 Mg Tablet) 1 tab PO BID [facility] Last Admin: 10/25/18 10:01 Dose: 1 tab Spironolactone (Aldactone -) 25 mg PO DAILY [facility] Last Admin: 10/25/18 10:01 Dose: 25 mg Tamsulosin HCl (Flomax -) 0.4 mg PO DAILY@0830 [facility] Last Admin: 10/25/18 08:23 Dose: 0.4 mg Tramadol HCl (Ultram -) 50 mg PO DAILY PRN PRN Reason: PAIN LEVEL 7 - 10 - Objective Vital Signs: Vital Signs Temperature 98.1 F 10/25/18 10:00 Pulse Rate 91 H 10/25/18 10:00 Respiratory Rate 18 10/25/18 10:00 Blood Pressure 113/65 10/25/18 10:00 O2 Sat by Pulse Oximetry (%) 96 10/25/18 10:00 Constitutional: Yes: Well Nourished, No Distress, Calm Cardiovascular: Yes: Regular Rate and Rhythm Respiratory: Yes: Regular Gastrointestinal: Yes: Normal Bowel Sounds, Soft Musculoskeletal: Yes: Muscle Weakness Neurological: Yes: Alert, Pre-Existing Deficit Psychiatric: Yes: Alert Labs: CBC, BMP 10/25/18 06:00 10/25/18 06:00 Problem List - Problems (1) Acute exacerbation of CHF (congestive heart failure) Assessment/Plan: -Seen by cardiology -IV lasix bid -daily weights -low sodium diet -monitor I&O's -repeat echo pending Code(s): I50.9 - HEART FAILURE, UNSPECIFIED (2) SOB (shortness of breath) Assessment/Plan: -improved -CT chest reviewed -Seen by pulmonary -nasal O2 PRN -Bronchodilators prn Code(s): R06.02 - SHORTNESS OF BREATH (3) Hypoalbuminemia Assessment/Plan: -[employer] -RD consult -Speech consult Code(s): E88.09 - OTH DISORDERS OF PLASMA-PROTEIN METABOLISM, NEC Assessment/Plan See problem list Physical therapy
[2018-10-25] MEDS: ALBUTEROL SO4 2.5/IPRATROPIUM 0.5 INH SOL 3 ML VIAL.NEB. NEB SCH ×3 (13:16→20:59)
--- NOTE | 2018-10-25 14:53 | PN ---
Progress Note (short form) - Note Progress Note: PULMONARY RESTING COMFORTABLY CARDIO NOTE REVIEWED SPOKE WITH VSS/AFEBRILE ANICTERIC DIMINISHED B/L BREATH SOUNDS BASES S1S2 BS+ MILD LOWER EXT EDEMA LABS/MEDS/NOTES/IMAGES REVIEWED (1) Acute exacerbation of CHF (congestive heart failure) Code(s): I50.9 - HEART FAILURE, UNSPECIFIED (2) Afib Code(s): I48.91 - UNSPECIFIED ATRIAL FIBRILLATION (3) CVA (cerebral vascular accident) Code(s): I63.9 - CEREBRAL INFARCTION, UNSPECIFIED (4) Congestive heart failure Code(s): I50.9 - HEART FAILURE, UNSPECIFIED Qualifiers: Heart failure type: other Qualified Code(s): I50.9 - Heart failure, unspecified (5) Edema Code(s): R60.9 - EDEMA, UNSPECIFIED Qualifiers: Edema type: unspecified Qualified Code(s): R60.9 - Edema, unspecified (6) [place] (hard of hearing) Code(s): H91.90 - UNSPECIFIED HEARING LOSS, UNSPECIFIED EAR (7) HTN (hypertension) Code(s): I10 - ESSENTIAL (PRIMARY) HYPERTENSION (8) Pleural effusion on right Code(s): J90 - PLEURAL EFFUSION, NOT ELSEWHERE CLASSIFIED (9) Spinal stenosis at L4-L5 level Code(s): M48.061 - SPINAL STENOSIS, LUMBAR REGION WITHOUT NEUROGENIC CB Assessment/Plan AGREE WITH MEDICAL MANAGEMENT OF HIS VOLUME OVERLOAD FOLLOW CXR O2 SUPPLEMENTATION NEEDED RESUME HIS CARDIAC MED Seamus GRIGGS MD Problem List - Problems (1) Acute exacerbation of CHF (congestive heart failure) Code(s): I50.9 - HEART FAILURE, UNSPECIFIED (2) Afib Code(s): I48.91 - UNSPECIFIED ATRIAL FIBRILLATION (3) CVA (cerebral vascular accident) Code(s): I63.9 - CEREBRAL INFARCTION, UNSPECIFIED (4) Congestive heart failure Code(s): I50.9 - HEART FAILURE, UNSPECIFIED Qualifiers: Heart failure type: other Qualified Code(s): I50.9 - Heart failure, unspecified (5) Edema Code(s): R60.9 - EDEMA, UNSPECIFIED Qualifiers: Edema type: unspecified Qualified Code(s): R60.9 - Edema, unspecified (6) [place] (hard of hearing) Code(s): H91.90 - UNSPECIFIED HEARING LOSS, UNSPECIFIED EAR (7) HTN (hypertension) Code(s): I10 - ESSENTIAL (PRIMARY) HYPERTENSION (8) Pleural effusion on right Code(s): J90 - PLEURAL EFFUSION, NOT ELSEWHERE CLASSIFIED (9) Spinal stenosis at L4-L5 level Code(s): M48.061 - SPINAL STENOSIS, LUMBAR REGION WITHOUT NEUROGENIC CB
--- NOTE | 2018-10-25 15:51 | CONSULT ---
Consult Consult Specialty:: Nephrology Reason for Consultation:: azotemia and proteinuria - History of Present Illness Chief Complaint: fluid overload History of Present Illness: Pt is a 78 year old male with pmhx of CHF, a-fib, CVA, HTN, HLD, and thyroid disease who presents to the ER with increased edema. He is accompanied but his who assisted with history. He was on daily lasix at home however she started to give him 40 mg BID after speaking to his career services manager. He feels that his edema is improving. He was found to have elevated bun and found to have proteinuria. He denies dysuria or hematuria. He denies fevers or chills. He denies nsaids use. He denies history of CKD. He did have obstruction in the past. Per chart records he has had abnormal bun in the past and proteinuria in the past. 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: CVA Cardio/Vascular: Yes: AFIB, CHF, HTN, Hyperlipdemia Pulmonary: Yes: COPD Renal/: Yes: Renal Inusuff, Other (protienuria) Musculoskeletal: Yes: Other (spinal stenosis DJD) Endocrine: Yes: Hypothyroidism - Past Surgical History Past Surgical History: Yes: Permanent Pacemaker - Alcohol/Substance Use Hx Alcohol Use: No History of Substance Use: reports: None - Smoking History Smoking history: Never smoked Have you smoked in the past 12 months: No Aproximately how many cigarettes per day: 0 - Social History Usual Living Arrangement: With Spouse ADL: Family Assistance History of Recent Travel: No Home Medications - Allergies Allergies/Adverse Reactions: Allergies Allergy/AdvReac Type Severity Reaction Status Date / Time No Known Drug Allergies Allergy Verified 10/23/18 17:38 - Home Medications Home Medications: Ambulatory Orders Carvedilol 25 mg PO BID tablet 01/09/17 Spironolactone 25 mg PO DAILY tablet 01/09/17 Multivitamins [Multivit ([facility] Formulary)] 1 tab PO DAILY 01/06/18 Rivaroxaban [Xarelto -] 20 mg PO DAILY 01/06/18 Ubidecarenone [Coq-10] 1 each PO BID 01/06/18 Levothyroxine [Synthroid -] 50 mcg PO DAILY 01/09/18 Sacubitril/Valsartan [Entresto 24 mg-26 mg Tablet] 1 each PO BID 07/02/18 Tramadol HCl 50 mg PO PRN PRN 10/24/18 Family Disease History - Family Disease History Family Disease History: Diabetes: Mother, Heart Disease: Father ([place] agte 57), Brother (Heart Virus, ), Sister ([place] in 60's age 81), [place]: Brother Review of Systems - Review of Systems Constitutional: reports: Malaise. denies: Chills, Fever Eyes: reports: No Symptoms HENT: reports: No Symptoms Neck: reports: No Symptoms Cardiovascular: reports: Edema, Shortness of Breath Respiratory: reports: SOB on Exertion Gastrointestinal: reports: No Symptoms Genitourinary: reports: No Symptoms Musculoskeletal: reports: No Symptoms Integumentary: reports: No Symptoms Neurological: reports: No Symptoms Endocrine: reports: No Symptoms Hematology/Lymphatic: reports: No Symptoms Psychiatric: reports: No Symptoms Physical Exam Vital Signs: Vital Signs Temperature 97.4 F L 10/25/18 14:00 Pulse Rate 89 10/25/18 14:00 Respiratory Rate 18 10/25/18 14:00 Blood Pressure 92/55 L 10/25/18 14:00 O2 Sat by Pulse Oximetry (%) 96 10/25/18 10:00 Constitutional: Yes: Calm Eyes: Yes: Conjunctiva Clear HENT: Yes: Atraumatic Neck: Yes: Supple Cardiovascular: Yes: S1, S2 Respiratory: Yes: Rhonchi Gastrointestinal: Yes: Soft Renal/: Yes: WNL Musculoskeletal: Yes: WNL Edema: Yes Edema: LLE: 1+, RLE: 1+ Neurological: Yes: Oriented Psychiatric: Yes: Oriented Labs: CBC, BMP 10/25/18 06:00 10/25/18 06:00 Laboratory Tests 02/23/13 03/11/13 06/30/13 17:30 17:21 11:00 BUN Urine Protein 2+ H 1+ H 1+ H Urine Blood 01/12/14 08/13/14 08/18/14 14:50 17:50 06:00 BUN 29 H D Urine Protein 2+ H 1+ H Urine Blood 08/19/14 06/27/16 08/01/17 06:35 12:55 16:05 BUN 35 H 22 H 21 H Urine Protein Urine Blood 05/14/18 10/23/1818 16:20 17:49 06:30 BUN 17 43 H Urine Protein 3+ H Urine Blood 1+ H 10/25/18 06:00 BUN 43 H Urine Protein Urine Blood Imaging - Results Chest X-ray: Report Reviewed Cat Scan: Report Reviewed Problem List - Problems (1) Proteinuria Code(s): R80.9 - PROTEINURIA, UNSPECIFIED (2) Azotemia Code(s): R79.89 - OTHER SPECIFIED ABNORMAL FINDINGS OF BLOOD CHEMISTRY (3) Acute exacerbation of CHF (congestive heart failure) Code(s): I50.9 - HEART FAILURE, UNSPECIFIED (4) Afib Code(s): I48.91 - UNSPECIFIED ATRIAL FIBRILLATION (5) CVA (cerebral vascular accident) Code(s): I63.9 - CEREBRAL INFARCTION, UNSPECIFIED (6) Congestive heart failure Code(s): I50.9 - HEART FAILURE, UNSPECIFIED Qualifiers: Heart failure type: other Qualified Code(s): I50.9 - Heart failure, unspecified (7) Edema Code(s): R60.9 - EDEMA, UNSPECIFIED Qualifiers: Edema type: unspecified Qualified Code(s): R60.9 - Edema, unspecified Assessment/Plan Current Medications Generic Name Dose Route Start Last Admin Trade Name Freq PRN Reason Stop Dose Admin Albuterol/Ipratropium 1 amp 10/25/18 12:15 10/25/18 13:16 Duoneb - NEB 1 amp RQID GAIL Administration Amino Acids 30 ml 10/25/18 17:30 Prosource No Carb Liquid Pkt PO BID@0800,1730 GAIL Carvedilol 25 mg 10/24/18 10:00 10/25/18 10:00 Coreg - PO 25 mg BID GAIL Administration Finasteride 5 mg 10/24/18 10:00 10/25/18 10:00 Proscar - PO 5 mg DAILY GAIL Administration Furosemide 40 mg 10/25/18 20:00 Lasix Injection - IVPUSH 10/25/18 20:01 ONCE ONE Furosemide 40 mg 10/26/18 06:00 Lasix Injection - IVPUSH BID@0600,1400 GAIL Glipizide 10 mg 10/24/18 10:00 10/25/18 08:23 Glucotrol - PO 10 mg BIDAC GAIL Administration Levothyroxine Sodium 50 mcg 10/24/18 07:00 10/25/18 06:48 Synthroid - PO 50 mcg DAILY@0700 GAIL Administration Multivitamins/Minerals/Vitamin C 1 tab 10/24/18 10:00 10/25/18 10:00 Tab-A-Vit - PO 1 tab DAILY GAIL Administration Rivaroxaban 20 mg 10/24/18 10:00 10/25/18 10:00 Xarelto - PO 20 mg DAILY GAIL Administration Sacubitril/Valsartan 1 tab 10/24/18 10:00 10/25/18 10:01 Entresto 24 Mg-26 Mg Tablet PO 1 tab BID GAIL Administration Spironolactone 25 mg 10/24/18 10:00 10/25/18 10:01 Aldactone - PO 25 mg DAILY GAIL Administration Tamsulosin HCl 0.4 mg 10/24/18 08:30 10/25/18 08:23 Flomax - PO 0.4 mg DAILY@0830 GAIL Administration Tramadol HCl 50 mg 10/24/18 09:15 Ultram - PO DAILY PRN PAIN LEVEL 7 - 10 Impression 1. azotemia 2. proteinuria 3. chf 4. a-fib 5. hypothyroidism 6. CKD Plan - cont aldactone and IV lasix - monitor lytes - check renal ultrasound - send urine prt to safety admin assistant ratio - will need outpt workup for ckd and proteinuria - discussed with family Dr Rae
[2018-10-25] MEDS: AMINO ACIDS/PROTEIN HYDROLYS 30 ML LIQUID.PKT PO SCH (17:03)
[2018-10-25 19:36] LABS: RATIO URIN PROTEIN/URIN CREAT 13.16 MG/DL
[2018-10-26 06:26] LABS: HEMATOCRIT 41.7 % (35.4-49); HEMOGLOBIN 13.7 GM/dL (11.7-16.9); MCH 30.1 pg (25.7-33.7); MCHC 32.8 g/dl (32.0-35.9); MEAN CELL VOLUME 91.8 fl (80-96); MEAN PLT VOLUME 8.7 fl (7.5-11.1); PLATELET COUNT 214 K/MM3 (134-434); RBC 4.54 M/mm3 (4.00-5.60); RDW 14.3 % (11.9-15.9); WHITE BLOOD COUNT 5.5 K/mm3 (4.0-10.0)
[2018-10-26] MEDS ORDERED: glipiZIDE 5 MG TABLET (FP) ONE ×2 (06:40→17:01)
[2018-10-26] MEDS: FUROSEMIDE 40 MG/4 ML INJECTABLE VIAL IVPUSH SCH ×2 (06:47→14:10)
[2018-10-26] MEDS: LEVOTHYROXINE NA 50 MCG TABLET (FP) PO SCH (06:47)
[2018-10-26 06:56] LABS: ALBUMIN 1.2 g/dl (3.4-5.0); ALK PHOS 74 U/L (45-117); ANION GAP 8 MMOL/L (8-16); BILIRUBIN,TOTAL 0.5 mg/dL (0.2-1); BLOOD UREA NITROGEN 45 mg/dL (7-18); CALCIUM 8.3 mg/dL (8.5-10.1); CHLORIDE 105 mmol/L (98-107); CO2 25 mmol/L (21-32); CREATININE 0.8 mg/dL (0.55-1.3); GLUCOSE,RANDOM 99 mg/dL (74-106); N-TERMINAL BNP 18686.8 pg/ml (5-450); POTASSIUM 4.4 mmol/L (3.5-5.1); SGOT/AST 14 U/L (15-37); SGPT/ALT 12 U/L (13-61); SODIUM 139 mmol/L (136-145); TOT PROT 3.8 g/dl (6.4-8.2)
[2018-10-26] MEDS: AMINO ACIDS/PROTEIN HYDROLYS 30 ML LIQUID.PKT PO SCH ×2 (08:13→17:04)
[2018-10-26] MEDS: TAMSULOSIN HCL 0.4 MG CAP PO SCH (08:13)
[2018-10-26] MEDS: glipiZIDE 10 MG TABLET (FP) PO SCH ×2 (08:13→17:04)
[2018-10-26] MEDS: ALBUTEROL SO4 2.5/IPRATROPIUM 0.5 INH SOL 3 ML VIAL.NEB. NEB SCH ×4 (09:00→20:41)
[2018-10-26] MEDS: MULTIVITAMINS (DAILY MVI) TABLET (FP) PO SCH (10:07)
[2018-10-26] MEDS: FINASTERIDE 5 MG TABLET (FP) PO SCH (10:07)
[2018-10-26] MEDS: CARVEDILOL 25 MG TABLET (FP) PO SCH ×2 (10:07→21:37)
[2018-10-26] MEDS: SPIRONOLACTONE 25 MG TABLET (FP) PO SCH (10:07)
[2018-10-26] MEDS: SACUBITRIL/VALSARTAN 24 MG-26 MG TABLET PO SCH ×2 (10:11→21:37)
[2018-10-26] MEDS: RIVAROXABAN 20 MG TABLET PO SCH (10:43)
--- NOTE | 2018-10-26 10:51 | PN ---
Progress Note (short form) - Note Progress Note: s: no cp palps dizzy. sob persist o: Vital Signs Period Temp Pulse Resp BP Sys/Nunez Pulse Ox Last 24 Hr 97.4 F-97.5 F 89-98 18-20 92-117/55-71 94-95 nad no jvd rrr s1s2 no mrg dec bs right, nl eff aaox3 trace le edema bl no c/c abd nt nd pos bs no jaundice diaphoresis Current Medications Generic Name Dose Route Start Last Admin Trade Name Freq PRN Reason Stop Dose Admin Albuterol/Ipratropium 1 amp 10/25/18 12:15 10/26/18 09:00 Duoneb - NEB 1 amp RQID GAIL Administration Amino Acids 30 ml 10/25/18 17:30 10/26/18 08:13 Prosource No Carb Liquid Pkt PO 30 ml BID@0800,1730 GAIL Administration Carvedilol 25 mg 10/24/18 10:00 10/26/18 10:07 Coreg - PO 25 mg BID GAIL Administration Finasteride 5 mg 10/24/18 10:00 10/26/18 10:07 Proscar - PO 5 mg DAILY GAIL Administration Furosemide 40 mg 10/26/18 06:00 10/26/18 06:47 Lasix Injection - IVPUSH 40 mg BID@0600,1400 GAIL Administration Glipizide 10 mg 10/24/18 10:00 10/26/18 08:13 Glucotrol - PO 10 mg BIDAC GAIL Administration Levothyroxine Sodium 50 mcg 10/24/18 07:00 10/26/18 06:47 Synthroid - PO 50 mcg DAILY@0700 GAIL Administration Multivitamins/Minerals/Vitamin C 1 tab 10/24/18 10:00 10/26/18 10:07 Tab-A-Vit - PO 1 tab DAILY GAIL Administration Rivaroxaban 20 mg 10/24/18 10:00 10/26/18 10:43 Xarelto - PO 20 mg DAILY GAIL Administration Sacubitril/Valsartan 1 tab 10/24/18 10:00 10/26/18 10:11 Entresto 24 Mg-26 Mg Tablet PO 1 tab BID GAIL Administration Spironolactone 25 mg 10/24/18 10:00 10/26/18 10:07 Aldactone - PO 25 mg DAILY GAIL Administration Tamsulosin HCl 0.4 mg 10/24/18 08:30 10/26/18 08:13 Flomax - PO 0.4 mg DAILY@0830 GAIL Administration Tramadol HCl 50 mg 10/24/18 09:15 Ultram - PO DAILY PRN PAIN LEVEL 7 - 10 CBC, BMP 10/26/18 06:00 10/26/18 06:00 echo 2016: lve, lvef 20%, mod dec rv fcn, nl rv size, sev lae, mild chris, mod mr , mild pr, mild-mod tr tele: sr, as-vp client services ecg: sr, as-vp client services ct chest: chf, large right eff a/p: 78 m hx cad s/p 2v cabg, ICM/syst chf, biv icd (medtronic), htn, hld, dm, cva, pafib here with sob. sob, acute sys chf: -no signs acs -was on lasix 40 bid at home -cont lasix 40 iv bid, daily wt, daily bmp-->may need to increase lasix dose if no sig improvement tomorrow -check updated echo -biv icd checked recently as outpt -cont bb, leif cad: -no anginal sxs -cont home meds htn: -cont home meds hld: -cont statin pafib: -on xarelto
--- NOTE | 2018-10-26 12:21 | PN ---
Progress Note (short form) - Note Progress Note: PULMONARY RESTING COMFORTABLY/OOB TO CHAIR CARDIO NOTE REVIEWED SPOKE WITH PATIENT OFFERS NO COMPLAINTS VSS/AFEBRILE ANICTERIC DIMINISHED B/L BREATH SOUNDS BASES S1S2 BS+ MILD LOWER EXT EDEMA LABS/MEDS/NOTES/IMAGES REVIEWED BUN45/CR.8 RENAL SONO NL (1) Acute exacerbation of CHF (congestive heart failure) Code(s): I50.9 - HEART FAILURE, UNSPECIFIED (2) Afib Code(s): I48.91 - UNSPECIFIED ATRIAL FIBRILLATION (3) CVA (cerebral vascular accident) Code(s): I63.9 - CEREBRAL INFARCTION, UNSPECIFIED (4) Congestive heart failure Code(s): I50.9 - HEART FAILURE, UNSPECIFIED Qualifiers: Heart failure type: other Qualified Code(s): I50.9 - Heart failure, unspecified (5) Edema Code(s): R60.9 - EDEMA, UNSPECIFIED Qualifiers: Edema type: unspecified Qualified Code(s): R60.9 - Edema, unspecified (6) [place] (hard of hearing) Code(s): H91.90 - UNSPECIFIED HEARING LOSS, UNSPECIFIED EAR (7) HTN (hypertension) Code(s): I10 - ESSENTIAL (PRIMARY) HYPERTENSION (8) Pleural effusion on right Code(s): J90 - PLEURAL EFFUSION, NOT ELSEWHERE CLASSIFIED (9) Spinal stenosis at L4-L5 level Code(s): M48.061 - SPINAL STENOSIS, LUMBAR REGION WITHOUT NEUROGENIC CB Assessment/Plan AGREE WITH MEDICAL MANAGEMENT OF HIS VOLUME OVERLOAD FOLLOW CXR O2 SUPPLEMENTATION NEEDED RESUME HIS CARDIAC MED Seamus GRIGGS MD Problem List - Problems (1) Acute exacerbation of CHF (congestive heart failure) Code(s): I50.9 - HEART FAILURE, UNSPECIFIED (2) Afib Code(s): I48.91 - UNSPECIFIED ATRIAL FIBRILLATION (3) CVA (cerebral vascular accident) Code(s): I63.9 - CEREBRAL INFARCTION, UNSPECIFIED (4) Congestive heart failure Code(s): I50.9 - HEART FAILURE, UNSPECIFIED Qualifiers: Heart failure type: other Qualified Code(s): I50.9 - Heart failure, unspecified (5) Edema Code(s): R60.9 - EDEMA, UNSPECIFIED Qualifiers: Edema type: unspecified Qualified Code(s): R60.9 - Edema, unspecified (6) [place] (hard of hearing) Code(s): H91.90 - UNSPECIFIED HEARING LOSS, UNSPECIFIED EAR (7) HTN (hypertension) Code(s): I10 - ESSENTIAL (PRIMARY) HYPERTENSION (8) Pleural effusion on right Code(s): J90 - PLEURAL EFFUSION, NOT ELSEWHERE CLASSIFIED (9) Spinal stenosis at L4-L5 level Code(s): M48.061 - SPINAL STENOSIS, LUMBAR REGION WITHOUT NEUROGENIC CB
--- NOTE | 2018-10-26 13:00 | PN ---
Progress Note, Physician History of Present Illness: Pt seen and examined at bedside. He is awake and appears comfortable. He is not on oxygen. - Current Medication List Current Medications: Active Medications Albuterol/Ipratropium (Duoneb -) 1 amp NEB RQID [facility] Last Admin: 10/26/18 09:00 Dose: 1 amp Amino Acids (Prosource No Carb Liquid Pkt) 30 ml PO BID@0800,1730 [facility] Last Admin: 10/26/18 08:13 Dose: 30 ml Carvedilol (Coreg -) 25 mg PO BID [facility] Last Admin: 10/26/18 10:07 Dose: 25 mg Finasteride (Proscar -) 5 mg PO DAILY [facility] Last Admin: 10/26/18 10:07 Dose: 5 mg Furosemide (Lasix Injection -) 40 mg IVPUSH BID@0600,1400 [facility] Last Admin: 10/26/18 06:47 Dose: 40 mg Glipizide (Glucotrol -) 10 mg PO BIDAC [facility] Last Admin: 10/26/18 08:13 Dose: 10 mg Levothyroxine Sodium (Synthroid -) 50 mcg PO DAILY@0700 [facility] Last Admin: 10/26/18 06:47 Dose: 50 mcg Multivitamins/Minerals/Vitamin C (Tab-A-Vit -) 1 tab PO DAILY [facility] Last Admin: 10/26/18 10:07 Dose: 1 tab Rivaroxaban (Xarelto -) 20 mg PO DAILY [facility] Last Admin: 10/26/18 10:43 Dose: 20 mg Sacubitril/Valsartan (Entresto 24 Mg-26 Mg Tablet) 1 tab PO BID [facility] Last Admin: 10/26/18 10:11 Dose: 1 tab Spironolactone (Aldactone -) 25 mg PO DAILY [facility] Last Admin: 10/26/18 10:07 Dose: 25 mg Tamsulosin HCl (Flomax -) 0.4 mg PO DAILY@0830 [facility] Last Admin: 10/26/18 08:13 Dose: 0.4 mg Tramadol HCl (Ultram -) 50 mg PO DAILY PRN PRN Reason: PAIN LEVEL 7 - 10 - Objective Vital Signs: Vital Signs Temperature 97.4 F L 10/26/18 05:49 Pulse Rate 95 H 10/26/18 05:49 Respiratory Rate 20 10/26/18 05:49 Blood Pressure 109/64 10/26/18 05:49 O2 Sat by Pulse Oximetry (%) 95 10/26/18 08:46 Constitutional: Yes: Calm Eyes: Yes: Conjunctiva Clear Cardiovascular: Yes: S1, S2 Respiratory: Yes: Rhonchi Gastrointestinal: Yes: Soft Genitourinary: Yes: WNL Musculoskeletal: Yes: WNL Edema: Yes Edema: LLE: 1+, RLE: 1+ Neurological: Yes: Oriented Psychiatric: Yes: Oriented Labs: CBC, BMP 10/26/18 06:00 10/26/18 06:00 - ....Imaging Ultrasound: Report Reviewed Problem List - Problems (1) Proteinuria Code(s): R80.9 - PROTEINURIA, UNSPECIFIED (2) Azotemia Code(s): R79.89 - OTHER SPECIFIED ABNORMAL FINDINGS OF BLOOD CHEMISTRY (3) Acute exacerbation of CHF (congestive heart failure) Code(s): I50.9 - HEART FAILURE, UNSPECIFIED (4) Afib Code(s): I48.91 - UNSPECIFIED ATRIAL FIBRILLATION (5) CVA (cerebral vascular accident) Code(s): I63.9 - CEREBRAL INFARCTION, UNSPECIFIED (6) Congestive heart failure Code(s): I50.9 - HEART FAILURE, UNSPECIFIED Qualifiers: Heart failure type: other Qualified Code(s): I50.9 - Heart failure, unspecified (7) Edema Code(s): R60.9 - EDEMA, UNSPECIFIED Qualifiers: Edema type: unspecified Qualified Code(s): R60.9 - Edema, unspecified Assessment/Plan Current Medications Generic Name Dose Route Start Last Admin Trade Name Aline PRN Reason Stop Dose Admin Albuterol/Ipratropium 1 amp 10/25/18 12:15 10/26/18 09:00 Duoneb - NEB 1 amp RQID GAIL Administration Amino Acids 30 ml 10/25/18 17:30 10/26/18 08:13 Prosource No Carb Liquid Pkt PO 30 ml BID@0800,1730 GAIL Administration Carvedilol 25 mg 10/24/18 10:00 10/26/18 10:07 Coreg - PO 25 mg BID GAIL Administration Finasteride 5 mg 10/24/18 10:00 10/26/18 10:07 Proscar - PO 5 mg DAILY GAIL Administration Furosemide 40 mg 10/26/18 06:00 10/26/18 06:47 Lasix Injection - IVPUSH 40 mg BID@0600,1400 GAIL Administration Glipizide 10 mg 10/24/18 10:00 10/26/18 08:13 Glucotrol - PO 10 mg BIDAC GAIL Administration Levothyroxine Sodium 50 mcg 10/24/18 07:00 10/26/18 06:47 Synthroid - PO 50 mcg DAILY@0700 GAIL Administration Multivitamins/Minerals/Vitamin C 1 tab 10/24/18 10:00 10/26/18 10:07 Tab-A-Vit - PO 1 tab DAILY GAIL Administration Rivaroxaban 20 mg 10/24/18 10:00 10/26/18 10:43 Xarelto - PO 20 mg DAILY GAIL Administration Sacubitril/Valsartan 1 tab 10/24/18 10:00 10/26/18 10:11 Entresto 24 Mg-26 Mg Tablet PO 1 tab BID GAIL Administration Spironolactone 25 mg 10/24/18 10:00 10/26/18 10:07 Aldactone - PO 25 mg DAILY GAIL Administration Tamsulosin HCl 0.4 mg 10/24/18 08:30 10/26/18 08:13 Flomax - PO 0.4 mg DAILY@0830 GAIL Administration Tramadol HCl 50 mg 10/24/18 09:15 Ultram - PO DAILY PRN PAIN LEVEL 7 - 10 Impression 1. azotemia 2. proteinuria 3. chf 4. a-fib 5. hypothyroidism 6. CKD Plan - cont diuretics - pt is on valsartan in entresto - will send prelim renal workup - cont aldactone and IV lasix - monitor lytes - renal ultrasound reviewed - discussed with family Dr Rae
--- NOTE | 2018-10-26 17:25 | PN ---
Progress Note, Physician Chief Complaint: SOB Upper and Lower Extremity Swelling History of Present Illness: NAD at beside Coughing during meals as per nursing, says he does that all the time labs unremarkable CT chest mild pleural effusion BNP elevated Seen by cardiology - Current Medication List Current Medications: Active Medications Albuterol/Ipratropium (Duoneb -) 1 amp NEB RQID [facility] Last Admin: 10/26/18 16:41 Dose: 1 amp Amino Acids (Prosource No Carb Liquid Pkt) 30 ml PO BID@0800,1730 [facility] Last Admin: 10/26/18 17:04 Dose: 30 ml Carvedilol (Coreg -) 25 mg PO BID [facility] Last Admin: 10/26/18 10:07 Dose: 25 mg Finasteride (Proscar -) 5 mg PO DAILY [facility] Last Admin: 10/26/18 10:07 Dose: 5 mg Furosemide (Lasix Injection -) 40 mg IVPUSH BID@0600,1400 [facility] Last Admin: 10/26/18 14:10 Dose: 40 mg Glipizide (Glucotrol -) 10 mg PO BIDAC [facility] Last Admin: 10/26/18 17:04 Dose: 10 mg Levothyroxine Sodium (Synthroid -) 50 mcg PO DAILY@0700 [facility] Last Admin: 10/26/18 06:47 Dose: 50 mcg Multivitamins/Minerals/Vitamin C (Tab-A-Vit -) 1 tab PO DAILY [facility] Last Admin: 10/26/18 10:07 Dose: 1 tab Rivaroxaban (Xarelto -) 20 mg PO DAILY [facility] Last Admin: 10/26/18 10:43 Dose: 20 mg Sacubitril/Valsartan (Entresto 24 Mg-26 Mg Tablet) 1 tab PO BID [facility] Last Admin: 10/26/18 10:11 Dose: 1 tab Spironolactone (Aldactone -) 25 mg PO DAILY [facility] Last Admin: 10/26/18 10:07 Dose: 25 mg Tamsulosin HCl (Flomax -) 0.4 mg PO DAILY@0830 [facility] Last Admin: 10/26/18 08:13 Dose: 0.4 mg Tramadol HCl (Ultram -) 50 mg PO DAILY PRN PRN Reason: PAIN LEVEL 7 - 10 - Objective Vital Signs: Vital Signs Temperature 98.0 F 10/26/18 14:00 Pulse Rate 94 H 10/26/18 14:00 Respiratory Rate 20 10/26/18 14:00 Blood Pressure 116/71 10/26/18 14:00 O2 Sat by Pulse Oximetry (%) 95 10/26/18 08:46 Constitutional: Yes: Well Nourished, No Distress, Calm Cardiovascular: Yes: Regular Rate and Rhythm Respiratory: Yes: Regular Gastrointestinal: Yes: Normal Bowel Sounds, Soft Genitourinary: Yes: WNL Musculoskeletal: Yes: WNL Extremities: Yes: WNL Edema: Yes Edema: LLE: Trace, RLE: Trace Peripheral Pulses WNL: Yes Neurological: Yes: Alert, Oriented Psychiatric: Yes: Alert, Oriented Labs: CBC, BMP 10/26/18 06:00 10/26/18 06:00 Problem List - Problems (1) Acute exacerbation of CHF (congestive heart failure) Assessment/Plan: -Seen by cardiology -IV lasix bid -daily weights -low sodium diet -monitor I&O's -repeat echo pending Code(s): I50.9 - HEART FAILURE, UNSPECIFIED (2) SOB (shortness of breath) Assessment/Plan: -improved -CT chest reviewed -Seen by pulmonary -nasal O2 PRN -Bronchodilators prn Code(s): R06.02 - SHORTNESS OF BREATH (3) Hypoalbuminemia Assessment/Plan: -Prosource -RD consult -Speech consult Code(s): E88.09 - OT DISORDERS OF PLASMA-PROTEIN METABOLISM, NEC Assessment/Plan See problem list Physical therapy
[2018-10-26] MEDS ORDERED: PT OWN MED DRAWER 7, Y5N ONE (21:23)
[2018-10-27] MEDS: FUROSEMIDE 40 MG/4 ML INJECTABLE VIAL IVPUSH SCH ×2 (06:13→14:24)
[2018-10-27] MEDS: LEVOTHYROXINE NA 50 MCG TABLET (FP) PO SCH (06:13)
[2018-10-27 06:41] LABS: HEMATOCRIT 41.4 % (35.4-49); HEMOGLOBIN 13.3 GM/dL (11.7-16.9); MCH 29.5 pg (25.7-33.7); MCHC 32.1 g/dl (32.0-35.9); MEAN CELL VOLUME 91.9 fl (80-96); PLATELET COUNT 213 K/MM3 (134-434); RBC 4.51 M/mm3 (4.00-5.60); RDW 14.3 % (11.9-15.9); WHITE BLOOD COUNT 5.3 K/mm3 (4.0-10.0)
[2018-10-27 06:57] LABS: ALBUMIN 1.1 g/dl (3.4-5.0); ALK PHOS 71 U/L (45-117); ANION GAP 7 MMOL/L (8-16); BILIRUBIN,TOTAL 0.5 mg/dL (0.2-1); BLOOD UREA NITROGEN 51 mg/dL (7-18); CALCIUM 8.3 mg/dL (8.5-10.1); CHLORIDE 108 mmol/L (98-107); CO2 25 mmol/L (21-32); CREATININE 0.9 mg/dL (0.55-1.3); GLUCOSE,RANDOM 82 mg/dL (74-106); N-TERMINAL BNP 16096.2 pg/ml (5-450); SGOT/AST 16 U/L (15-37); SGPT/ALT 12 U/L (13-61); SODIUM 140 mmol/L (136-145); TOT PROT 3.8 g/dl (6.4-8.2)
[2018-10-27] MEDS: ALBUTEROL SO4 2.5/IPRATROPIUM 0.5 INH SOL 3 ML VIAL.NEB. NEB SCH ×4 (07:26→21:00)
--- NOTE | 2018-10-27 09:15 | PN ---
Progress Note, Physician Chief Complaint: sob History of Present Illness: was feeling that sob improved, but worse today. and incr abdominal breathing, similar to what pt and saw at home. no cp. no leg swelling. no palpit denies h/o cigs or known copd/other lung dz - Current Medication List Current Medications: Active Medications Albuterol/Ipratropium (Duoneb -) 1 amp NEB RQID [facility] Last Admin: 10/27/18 07:26 Dose: Not Given Amino Acids (Prosource No Carb Liquid Pkt) 30 ml PO BID@0800,1730 [facility] Last Admin: 10/26/18 17:04 Dose: 30 ml Carvedilol (Coreg -) 25 mg PO BID [facility] Last Admin: 10/26/18 21:37 Dose: 25 mg Finasteride (Proscar -) 5 mg PO DAILY [facility] Last Admin: 10/26/18 10:07 Dose: 5 mg Furosemide (Lasix Injection -) 40 mg IVPUSH BID@0600,1400 [facility] Last Admin: 10/27/18 06:13 Dose: 40 mg Glipizide (Glucotrol -) 10 mg PO BIDAC [facility] Last Admin: 10/26/18 17:04 Dose: 10 mg Levothyroxine Sodium (Synthroid -) 50 mcg PO DAILY@0700 [facility] Last Admin: 10/27/18 06:13 Dose: 50 mcg Multivitamins/Minerals/Vitamin C (Tab-A-Vit -) 1 tab PO DAILY [facility] Last Admin: 10/26/18 10:07 Dose: 1 tab Rivaroxaban (Xarelto -) 20 mg PO DAILY [facility] Last Admin: 10/26/18 10:43 Dose: 20 mg Sacubitril/Valsartan (Entresto 24 Mg-26 Mg Tablet) 1 tab PO BID [facility] Last Admin: 10/26/18 21:37 Dose: 1 tab Spironolactone (Aldactone -) 25 mg PO DAILY [facility] Last Admin: 10/26/18 10:07 Dose: 25 mg Tamsulosin HCl (Flomax -) 0.4 mg PO DAILY@0830 [facility] Last Admin: 10/26/18 08:13 Dose: 0.4 mg - Objective Vital Signs: Vital Signs Temperature 97.4 F L 10/27/18 06:00 Pulse Rate 92 H 10/27/18 06:00 Respiratory Rate 18 10/27/18 06:00 Blood Pressure 103/58 L 10/27/18 06:00 O2 Sat by Pulse Oximetry (%) 97 10/26/18 21:00 Constitutional: Yes: No Distress, Calm Eyes: No: Sclera Icterus HENT: No: Nasal Congestion Cardiovascular: Yes: Regular Rate and Rhythm (decr intensity sounds), JVD ( possible (TDS--accessory muscle use, nebs use), S1, S2, Other (PMI non diplaced) . No: Gallop, Murmur Respiratory: Yes: CTA Bilaterally. No: Accessory Muscle Use, Rales, Wheezes Gastrointestinal: Yes: Normal Bowel Sounds, Soft. 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 sob, acute sys chf: -no signs acs -BNP 13-17K here (baseline range 6-9K). large R effusion, small L, + mild congestive parenchymal changes on CT. -was on lasix 40 bid at home -receiving lasix 40 iv bid -10/27: no wt decline here. creat and bicarb stable (bun rising). sob not signif improving, pt reports modest UOP to lasix 40 dose. + accessory muscle use. increase lasix to 80 iv bid, first dose now. -reassess in am--? will need consider tap R effusion if persists and cannot diurese him well -check updated echo (pending) -biv icd checked recently as outpt -cont bb, leif cad: -no anginal sxs -cont home meds htn: -cont home meds hld: -cont statin pafib: -on xarelto
[2018-10-27] MEDS ORDERED: glipiZIDE 5 MG TABLET (FP) ONE ×2 (09:32→16:59)
[2018-10-27] MEDS ORDERED: PT OWN MED DRAWER 7, Y5N ONE ×2 (09:33→21:33)
[2018-10-27] MEDS: CARVEDILOL 25 MG TABLET (FP) PO SCH ×2 (09:39→21:30)
[2018-10-27] MEDS: MULTIVITAMINS (DAILY MVI) TABLET (FP) PO SCH (09:39)
[2018-10-27] MEDS: TAMSULOSIN HCL 0.4 MG CAP PO SCH (09:39)
[2018-10-27] MEDS: AMINO ACIDS/PROTEIN HYDROLYS 30 ML LIQUID.PKT PO SCH ×2 (09:40→18:26)
[2018-10-27] MEDS: glipiZIDE 10 MG TABLET (FP) PO SCH ×2 (09:41→18:26)
[2018-10-27] MEDS: RIVAROXABAN 20 MG TABLET PO SCH (09:41)
[2018-10-27] MEDS: FINASTERIDE 5 MG TABLET (FP) PO SCH (09:42)
[2018-10-27] MEDS: SACUBITRIL/VALSARTAN 24 MG-26 MG TABLET PO SCH ×2 (09:42→21:34)
[2018-10-27] MEDS: SPIRONOLACTONE 25 MG TABLET (FP) PO SCH (09:42)
[2018-10-27] MEDS ORDERED: FUROSEMIDE 40 MG/4 ML INJECTABLE VIAL IVPUSH SCH (11:23)
--- NOTE | 2018-10-27 12:11 | PN ---
Progress Note, Physician Chief Complaint: AWAKE ALERT BEDSIDE DENIES SOB - Current Medication List Current Medications: Active Medications Albuterol/Ipratropium (Duoneb -) 1 amp NEB RQID [facility] Last Admin: 10/27/18 11:05 Dose: 1 amp Amino Acids (Prosource No Carb Liquid Pkt) 30 ml PO BID@0800,1730 [facility] Last Admin: 10/27/18 09:40 Dose: 30 ml Carvedilol (Coreg -) 25 mg PO BID [facility] Last Admin: 10/27/18 09:39 Dose: 25 mg Finasteride (Proscar -) 5 mg PO DAILY [facility] Last Admin: 10/27/18 09:42 Dose: 5 mg Furosemide (Lasix Injection -) 80 mg IVPUSH BID@0600,1400 [facility] Glipizide (Glucotrol -) 10 mg PO BIDAC [facility] Last Admin: 10/27/18 09:41 Dose: 10 mg Levothyroxine Sodium (Synthroid -) 50 mcg PO DAILY@0700 [facility] Last Admin: 10/27/18 06:13 Dose: 50 mcg Multivitamins/Minerals/Vitamin C (Tab-A-Vit -) 1 tab PO DAILY [facility] Last Admin: 10/27/18 09:39 Dose: 1 tab Rivaroxaban (Xarelto -) 20 mg PO DAILY [facility] Last Admin: 10/27/18 09:41 Dose: 20 mg Sacubitril/Valsartan (Entresto 24 Mg-26 Mg Tablet) 1 tab PO BID [facility] Last Admin: 10/27/18 09:42 Dose: 1 tab Spironolactone (Aldactone -) 25 mg PO DAILY [facility] Last Admin: 10/27/18 09:42 Dose: 25 mg Tamsulosin HCl (Flomax -) 0.4 mg PO DAILY@0830 [facility] Last Admin: 10/27/18 09:39 Dose: 0.4 mg - Objective Vital Signs: Vital Signs Temperature 98.0 F 10/27/18 09:47 Pulse Rate 97 H 10/27/18 09:47 Respiratory Rate 18 10/27/18 09:47 Blood Pressure 121/54 L 10/27/18 09:47 O2 Sat by Pulse Oximetry (%) 94 L 10/27/18 09:00 Constitutional: Yes: Mild Distress Eyes: Yes: WNL HENT: Yes: WNL Neck: Yes: WNL Cardiovascular: Yes: WNL Respiratory: Yes: WNL Gastrointestinal: Yes: WNL Genitourinary: Yes: WNL Extremities: Yes: WNL Edema: Yes Edema: LLE: Trace, RLE: Trace Peripheral Pulses WNL: Yes Integumentary: Yes: WNL Wound/Incision: Yes: Clean/Dry Neurological: Yes: WNL ...Motor Strength: WNL Psychiatric: Yes: WNL Labs: CBC, BMP 10/27/18 05:30 10/27/18 05:30 Problem List - Problems (1) Acute exacerbation of CHF (congestive heart failure) Code(s): I50.9 - HEART FAILURE, UNSPECIFIED (2) Afib Code(s): I48.91 - UNSPECIFIED ATRIAL FIBRILLATION (3) Azotemia Code(s): R79.89 - OTHER SPECIFIED ABNORMAL FINDINGS OF BLOOD CHEMISTRY (4) Acute systolic CHF (congestive heart failure) Code(s): I50.21 - ACUTE SYSTOLIC (CONGESTIVE) HEART FAILURE Assessment/Plan LASIX FOR DIUERISIS OF CHF 02 SUPPORT LABS REVIEWED CHECKING LABS PT CARMELA
--- NOTE | 2018-10-27 12:54 | PN ---
Progress Note, Physician - Current Medication List Current Medications: Active Medications Albuterol/Ipratropium (Duoneb -) 1 amp NEB RQID [facility] Last Admin: 10/27/18 11:05 Dose: 1 amp Amino Acids (Prosource No Carb Liquid Pkt) 30 ml PO BID@0800,1730 [facility] Last Admin: 10/27/18 09:40 Dose: 30 ml Carvedilol (Coreg -) 25 mg PO BID [facility] Last Admin: 10/27/18 09:39 Dose: 25 mg Finasteride (Proscar -) 5 mg PO DAILY [facility] Last Admin: 10/27/18 09:42 Dose: 5 mg Furosemide (Lasix Injection -) 80 mg IVPUSH BID@0600,1400 [facility] Glipizide (Glucotrol -) 10 mg PO BIDAC [facility] Last Admin: 10/27/18 09:41 Dose: 10 mg Levothyroxine Sodium (Synthroid -) 50 mcg PO DAILY@0700 [facility] Last Admin: 10/27/18 06:13 Dose: 50 mcg Multivitamins/Minerals/Vitamin C (Tab-A-Vit -) 1 tab PO DAILY [facility] Last Admin: 10/27/18 09:39 Dose: 1 tab Rivaroxaban (Xarelto -) 20 mg PO DAILY [facility] Last Admin: 10/27/18 09:41 Dose: 20 mg Sacubitril/Valsartan (Entresto 24 Mg-26 Mg Tablet) 1 tab PO BID [facility] Last Admin: 10/27/18 09:42 Dose: 1 tab Spironolactone (Aldactone -) 25 mg PO DAILY [facility] Last Admin: 10/27/18 09:42 Dose: 25 mg Tamsulosin HCl (Flomax -) 0.4 mg PO DAILY@0830 [facility] Last Admin: 10/27/18 09:39 Dose: 0.4 mg - Objective Vital Signs: Vital Signs Temperature 98.0 F 10/27/18 09:47 Pulse Rate 97 H 10/27/18 09:47 Respiratory Rate 18 10/27/18 09:47 Blood Pressure 121/54 L 10/27/18 09:47 O2 Sat by Pulse Oximetry (%) 94 L 10/27/18 09:00 Labs: CBC, BMP 10/27/18 05:30 10/27/18 05:30 Assessment/Plan (1) Acute exacerbation of CHF (congestive heart failure) Code(s): I50.9 - HEART FAILURE, UNSPECIFIED (2) Afib Code(s): I48.91 - UNSPECIFIED ATRIAL FIBRILLATION (3) CVA (cerebral vascular accident) Code(s): I63.9 - CEREBRAL INFARCTION, UNSPECIFIED (4) Congestive heart failure Code(s): I50.9 - HEART FAILURE, UNSPECIFIED Qualifiers: Heart failure type: other Qualified Code(s): I50.9 - Heart failure, unspecified (5) Edema Code(s): R60.9 - EDEMA, UNSPECIFIED Qualifiers: Edema type: unspecified Qualified Code(s): R60.9 - Edema, unspecified (6) [place] (hard of hearing) Code(s): H91.90 - UNSPECIFIED HEARING LOSS, UNSPECIFIED EAR (7) HTN (hypertension) Code(s): I10 - ESSENTIAL (PRIMARY) HYPERTENSION (8) Pleural effusion on right Code(s): J90 - PLEURAL EFFUSION, NOT ELSEWHERE CLASSIFIED (9) Spinal stenosis at L4-L5 level Code(s): M48.061 - SPINAL STENOSIS, LUMBAR REGION WITHOUT NEUROGENIC CB Assessment/Plan MEDICAL MANAGEMENT OF HIS VOLUME OVERLOAD FOLLOW CXR O2 SUPPLEMENTATION CARDIAC MEDS RATE CONTROL DAILY WTS DR COLLINS Problem List - Problems (1) Acute exacerbation of CHF (congestive heart failure) Code(s): I50.9 - HEART FAILURE, UNSPECIFIED (2) Afib Code(s): I48.91 - UNSPECIFIED ATRIAL FIBRILLATION (3) CVA (cerebral vascular accident) Code(s): I63.9 - CEREBRAL INFARCTION, UNSPECIFIED (4) Congestive heart failure Code(s): I50.9 - HEART FAILURE, UNSPECIFIED Qualifiers: Heart failure type: other Qualified Code(s): I50.9 - Heart failure, unspecified (5) Edema Code(s): R60.9 - EDEMA, UNSPECIFIED Qualifiers: Edema type: unspecified Qualified Code(s): R60.9 - Edema, unspecified (6) [place] (hard of hearing) Code(s): H91.90 - UNSPECIFIED HEARING LOSS, UNSPECIFIED EAR (7) HTN (hypertension) Code(s): I10 - ESSENTIAL (PRIMARY) HYPERTENSION (8) Pleural effusion on right Code(s): J90 - PLEURAL EFFUSION, NOT ELSEWHERE CLASSIFIED (9) Spinal stenosis at L4-L5 level Code(s): M48.061 - SPINAL STENOSIS, LUMBAR REGION WITHOUT NEUROGENIC CB
--- NOTE | 2018-10-27 14:57 | ECHO ---
Name: TIMMY SINGH Exam:Adult Echocardiogram Study Date: 10/27/2018 09:59 AM Age: 78 yrs Reason For Study: CHF Height: 69 in Weight: 176 lb BSA: 2.0 m2 MMode/2D Measurements & Calculations IVSd: 0.89 cm Ao root diam: 3.5 cm LVIDd: 6.7 cm LA dimension: 5.1 cm LVIDs: 5.8 cm ACS: 1.3 cm LVPWd: 0.93 cm IVSs: 1.0 cm LVPWs: 1.1 cm EDV(Teich): 233.3 ml ESV(Teich): 167.3 ml Doppler Measurements & Calculations Ao V2 max: 81.4 cm/sec MR max sada: 449.1 cm/sec Ao max P.7 mmHg MR max P.7 mmHg Ao V2 mean: 62.9 cm/sec Ao mean P.7 mmHg Ao V2 VTI: 13.1 cm TR max sada: 273.7 cm/sec PI end-d sada: 242.1 cm/sec TR max P.4 mmHg Procedure A complete two-dimensional transthoracic echocardiogram was performed (2D, M-mode, Doppler and color flow Doppler). Technically limited study. Left Ventricle The left ventricle is severely dilated. Left ventricular systolic function is severely reduced. Eject ion Fraction = 25-30%. There is severe global hypokinesis of the left ventricle. Right Ventricle The right ventricle is normal size. There is a pacemaker lead in the right ventricle. The right ventr icular systolic function is moderately reduced. Atria The left atrium is severely dilated. The right atrium is mildly dilated. Mitral Valve There is mild mitral annular calcification. There is mild mitral valve thickening. There is moderate to severe mitral regurgitation. Tricuspid Valve The tricuspid valve is normal in structure and function. There is mild tricuspid regurgitation. Pulmo nary artery systolic pressure is at least 48 mmHg assuming RA pressure of 8 mmHg. Aortic Valve There is mild aortic sclerosis.;. No aortic regurgitation is present. Pulmonic Valve The pulmonic valve is not well visualized. Mild pulmonic valvular regurgitation. Great Vessels The aortic root is normal size. Pericardium/Pleura There is no pericardial effusion. Interpretation Summary Technically limited study The left ventricle is severely dilated. Left ventricular systolic function is severely reduced. There is severe global hypokinesis of the left ventricle. Ejection Fraction = 25-30%. The right ventricular systolic function is moderately reduced. There is a pacemaker lead in the right ventricle. The left atrium is severely dilated. The right atrium is mildly dilated. There is mild mitral annular calcification. There is mild mitral valve thickening. There is mild tricuspid regurgitation. Pulmonary artery systolic pressure is at least 48 mmHg assuming RA pressure of 8 mmHg There is mild aortic sclerosis. Mild pulmonic valvular regurgitation. There is no pericardial effusion. Previous study is not available for comparison Buddy Farmer MD 10/27/2018 02:57 PM
--- NOTE | 2018-10-27 15:24 | PN ---
Progress Note, Physician History of Present Illness: Pt seen and examined at bedside. He had shortness of breath this morning. He denies chest pain. - Current Medication List Current Medications: Active Medications Albuterol/Ipratropium (Duoneb -) 1 amp NEB RQID [facility] Last Admin: 10/27/18 11:05 Dose: 1 amp Amino Acids (Prosource No Carb Liquid Pkt) 30 ml PO BID@0800,1730 [facility] Last Admin: 10/27/18 09:40 Dose: 30 ml Carvedilol (Coreg -) 25 mg PO BID [facility] Last Admin: 10/27/18 09:39 Dose: 25 mg Finasteride (Proscar -) 5 mg PO DAILY [facility] Last Admin: 10/27/18 09:42 Dose: 5 mg Furosemide (Lasix Injection -) 80 mg IVPUSH BID@0600,1400 [facility] Last Admin: 10/27/18 14:24 Dose: 80 mg Glipizide (Glucotrol -) 10 mg PO BIDAC [facility] Last Admin: 10/27/18 09:41 Dose: 10 mg Levothyroxine Sodium (Synthroid -) 50 mcg PO DAILY@0700 [facility] Last Admin: 10/27/18 06:13 Dose: 50 mcg Multivitamins/Minerals/Vitamin C (Tab-A-Vit -) 1 tab PO DAILY [facility] Last Admin: 10/27/18 09:39 Dose: 1 tab Rivaroxaban (Xarelto -) 20 mg PO DAILY [facility] Last Admin: 10/27/18 09:41 Dose: 20 mg Sacubitril/Valsartan (Entresto 24 Mg-26 Mg Tablet) 1 tab PO BID [facility] Last Admin: 10/27/18 09:42 Dose: 1 tab Spironolactone (Aldactone -) 25 mg PO DAILY [facility] Last Admin: 10/27/18 09:42 Dose: 25 mg Tamsulosin HCl (Flomax -) 0.4 mg PO DAILY@0830 [facility] Last Admin: 10/27/18 09:39 Dose: 0.4 mg - Objective Vital Signs: Vital Signs Temperature 97.6 F 10/27/18 14:23 Pulse Rate 90 10/27/18 14:23 Respiratory Rate 16 10/27/18 13:33 Blood Pressure 98/62 10/27/18 14:23 O2 Sat by Pulse Oximetry (%) 94 L 10/27/18 09:00 Constitutional: Yes: Calm Eyes: Yes: Conjunctiva Clear HENT: Yes: Atraumatic Neck: Yes: Supple Cardiovascular: Yes: JVD, S1, S2 Respiratory: Yes: Rhonchi Gastrointestinal: Yes: Soft Genitourinary: Yes: WNL Musculoskeletal: Yes: WNL Edema: Yes Edema: LLE: 1+, RLE: 1+ Neurological: Yes: Oriented Psychiatric: Yes: Oriented Labs: CBC, BMP 10/27/18 05:30 10/27/18 05:30 Problem List - Problems (1) Proteinuria Code(s): R80.9 - PROTEINURIA, UNSPECIFIED (2) Azotemia Code(s): R79.89 - OTHER SPECIFIED ABNORMAL FINDINGS OF BLOOD CHEMISTRY (3) Acute exacerbation of CHF (congestive heart failure) Code(s): I50.9 - HEART FAILURE, UNSPECIFIED (4) Afib Code(s): I48.91 - UNSPECIFIED ATRIAL FIBRILLATION (5) CVA (cerebral vascular accident) Code(s): I63.9 - CEREBRAL INFARCTION, UNSPECIFIED (6) Congestive heart failure Code(s): I50.9 - HEART FAILURE, UNSPECIFIED Qualifiers: Heart failure type: other Qualified Code(s): I50.9 - Heart failure, unspecified (7) Edema Code(s): R60.9 - EDEMA, UNSPECIFIED Qualifiers: Edema type: unspecified Qualified Code(s): R60.9 - Edema, unspecified Assessment/Plan Current Medications Generic Name Dose Route Start Last Admin Trade Name Freq PRN Reason Stop Dose Admin Albuterol/Ipratropium 1 amp 10/25/18 12:15 10/27/18 11:05 Duoneb - NEB 1 amp RQID [facility] Administration Amino Acids 30 ml 10/25/18 17:30 10/27/18 09:40 Prosource No Carb Liquid Pkt PO 30 ml BID@0800,1730 [facility] Administration Carvedilol 25 mg 10/24/18 10:00 10/27/18 09:39 Coreg - PO 25 mg BID [facility] Administration Finasteride 5 mg 10/24/18 10:00 10/27/18 09:42 Proscar - PO 5 mg DAILY [facility] Administration Furosemide 80 mg 10/27/18 11:28 10/27/18 14:24 Lasix Injection - IVPUSH 80 mg BID@0600,1400 [facility] Administration Glipizide 10 mg 10/24/18 10:00 10/27/18 09:41 Glucotrol - PO 10 mg BIDAC [facility] Administration Levothyroxine Sodium 50 mcg 10/24/18 07:00 10/27/18 06:13 Synthroid - PO 50 mcg DAILY@0700 [facility] Administration Multivitamins/Minerals/Vitamin C 1 tab 10/24/18 10:00 10/27/18 09:39 Tab-A-Vit - PO 1 tab DAILY [facility] Administration Rivaroxaban 20 mg 10/24/18 10:00 10/27/18 09:41 Xarelto - PO 20 mg DAILY [facility] Administration Sacubitril/Valsartan 1 tab 10/24/18 10:00 10/27/18 09:42 Entresto 24 Mg-26 Mg Tablet PO 1 tab BID [facility] Administration Spironolactone 25 mg 10/24/18 10:00 10/27/18 09:42 Aldactone - PO 25 mg DAILY [facility] Administration Tamsulosin HCl 0.4 mg 10/24/18 08:30 10/27/18 09:39 Flomax - PO 0.4 mg DAILY@0830 [facility] Administration Impression 1. azotemia 2. proteinuria 3. chf 4. a-fib 5. hypothyroidism 6. CKD Plan - cont lasix, dose was increased today - monitor renal function, bun rising - discussed proteinuria with pt - may have to hold aldactone of potassium rises - cont arb for proteinuria - discussed with family Dr Rae
[2018-10-27] MEDS ORDERED: ACETAMINOPHEN 325 MG TABLET (FP) PO PRN (15:45)
--- NOTE | 2018-10-27 21:48 | CONSULT ---
Admitting History and Physical - Admission Chief Complaint: Coughing while eating and drinking reported by nursing. Pt's reports this to be normal for him and attributes it to his CHF and COPD. 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 Cardiovascular: Yes: AFIB, CHF, HTN, Hyperlipdemia Pulmonary: Yes: COPD Gastrointestinal: No: Ascites Hepatobiliary: No: Cirrhosis Renal/: Yes: Renal Inusuff, Other (protienuria) Heme/Onc: No: Anemia Musculoskeletal: Yes: Other (spinal stenosis DJD) Endocrine: Yes: Hypothyroidism - Past Surgical History Past Surgical History: Yes: Permanent Pacemaker - Smoking History Smoking history: Never smoked Have you smoked in the past 12 months: No Aproximately how many cigarettes per day: 0 - Alcohol/Substance Use Hx Alcohol Use: No History of Substance Use: reports: None - Social History ADL: Family Assistance History of Recent Travel: No History - Admission Reason For Visit: CONGESTIVE HEART FAILURE/PLEURAL EFFUSION ON RIGHT - General Mental Status: Alert and Oriented, Awake and Alert Attention: Intact Ability to Follow Directions: Good Head/Neck Control: WFL - Hearing Hearing: Impaired Hearing: Impaired, Both Hearing Aide: Yes With Patient: No Speech Evaluation - Communication Primary Language: ROMANIAN Communication: Yes: Within Normal Limits (Able to engage in meaningful conversation. Takes turn appropriately.), Hearing Deficit Oral Expression Ability: Yes: No Impairment - Speech Production Apraxia: No Able to Make Needs Known: Yes: WNL Intelligibility: Yes: WNL - Speech Characteristics Voice Loudness: Mildly Soft/Quiet Voice Phonatory-based Quality: Yes: Normal Speech Pattern: Normal Nasal Resonance: Normal Articulation: Yes: Precise Rate of Speech: Intact - Language/Auditory Comprehension Follows: Yes: 2 Stage Simple Commands Observation: Able to respond to yes/no queries: Yes, Yes/No Confusion: No, Comprehends Conversational Speech: Yes - Language/Verbal Expression Aphasia: Yes: Fluent Able to Respond to Simple Queries: Yes: WNL Able to Communicate Wants and Needs: Yes: WNL Functional Communication Status: Yes: WNL Attention: Yes: Intact - Swallow Evaluation/Bedside Assessment Current Nutritional Intake: Regular (Pt. tolerating regular solids nd thin liquids. Requires reminders to stop eating when short of breath. Pt. observed with PO trials of his dinner of chicken and vegetables and taking his pills with water. No coughing and no wet vocal quality observed during or post swallow.), Thin Liquids (Tolerates well with verbal reminders to take single sips.) Dentition: Yes: Adequate Facial Symmetry at Rest: Symmetrical Recommendations - Speech Evaluation, Impression/Plan Impression: Swallow function judged WNL for current diet texture. - Disposition Discharge to: To be Determined - Dysphagia Impressions/Plan Swallowing Skills: WFL Dysphagia Impressions: No Impairment (Pt. to be monitored. Discussed with Nurse.) - Recommendations Diet Consistency: Regular Medication Administration: Whole with water Liquids: Thin Liquids
[2018-10-28] MEDS: glipiZIDE 10 MG TABLET (FP) PO SCH ×2 (06:21→17:16)
[2018-10-28] MEDS: FUROSEMIDE 40 MG/4 ML INJECTABLE VIAL IVPUSH SCH (06:28)
[2018-10-28] MEDS: LEVOTHYROXINE NA 50 MCG TABLET (FP) PO SCH (06:28)
[2018-10-28 07:31] LABS: ANION GAP 8 MMOL/L (8-16); BLOOD UREA NITROGEN 53 mg/dL (7-18); CALCIUM 7.9 mg/dL (8.5-10.1); CHLORIDE 108 mmol/L (98-107); CO2 22 mmol/L (21-32); CREATININE 0.8 mg/dL (0.55-1.3); GLUCOSE,RANDOM 72 mg/dL (74-106); POTASSIUM 4.3 mmol/L (3.5-5.1); SODIUM 138 mmol/L (136-145)
[2018-10-28] MEDS: ALBUTEROL SO4 2.5/IPRATROPIUM 0.5 INH SOL 3 ML VIAL.NEB. NEB SCH ×4 (07:40→21:00)
[2018-10-28] MEDS ORDERED: glipiZIDE 5 MG TABLET (FP) ONE (08:39)
[2018-10-28] MEDS ORDERED: PT OWN MED DRAWER 7, Y5N ONE ×3 (08:40→21:36)
--- NOTE | 2018-10-28 08:49 | PN ---
Progress Note, Physician Chief Complaint: sob History of Present Illness: not sure his sob is better than yesterday (though using less accessory muscles) uncertain if incr UOP yest vs prior-- says it increased only modestly. ( denies urinary obstruction/hesitancy sx's) no cp, palpit, edema no cigs - Current Medication List Current Medications: Active Medications Acetaminophen (Tylenol -) 650 mg PO Q6H PRN PRN Reason: PAIN LEVEL 6-10 Last Admin: 10/27/18 15:56 Dose: 650 mg Albuterol/Ipratropium (Duoneb -) 1 amp NEB RQID [facility] Last Admin: 10/27/18 21:00 Dose: Not Given Amino Acids (Prosource No Carb Liquid Pkt) 30 ml PO BID@0800,1730 [facility] Last Admin: 10/27/18 18:26 Dose: 30 ml Carvedilol (Coreg -) 25 mg PO BID [facility] Last Admin: 10/27/18 21:30 Dose: Not Given Finasteride (Proscar -) 5 mg PO DAILY [facility] Last Admin: 10/27/18 09:42 Dose: 5 mg Furosemide (Lasix Injection -) 80 mg IVPUSH BID@0600,1400 [facility] Last Admin: 10/28/18 06:28 Dose: 80 mg Glipizide (Glucotrol -) 10 mg PO BIDAC [facility] Last Admin: 10/28/18 06:21 Dose: Not Given Levothyroxine Sodium (Synthroid -) 50 mcg PO DAILY@0700 [facility] Last Admin: 10/28/18 06:28 Dose: 50 mcg Multivitamins/Minerals/Vitamin C (Tab-A-Vit -) 1 tab PO DAILY [facility] Last Admin: 10/27/18 09:39 Dose: 1 tab Rivaroxaban (Xarelto -) 20 mg PO DAILY@1800 [facility] Sacubitril/Valsartan (Entresto 24 Mg-26 Mg Tablet) 1 tab PO BID [facility] Last Admin: 10/27/18 21:34 Dose: 1 tab Spironolactone (Aldactone -) 25 mg PO DAILY [facility] Last Admin: 10/27/18 09:42 Dose: 25 mg Tamsulosin HCl (Flomax -) 0.4 mg PO DAILY@0830 [facility] Last Admin: 10/27/18 09:39 Dose: 0.4 mg - Objective Vital Signs: Vital Signs Temperature 97.4 F L 10/28/18 06:00 Pulse Rate 94 H 10/28/18 06:00 Respiratory Rate 20 10/28/18 06:00 Blood Pressure 117/66 10/28/18 06:00 O2 Sat by Pulse Oximetry (%) 93 L 10/27/18 20:35 Constitutional: Yes: No Distress, Calm Eyes: No: Sclera Icterus HENT: No: Nasal Congestion Cardiovascular: Yes: Regular Rate and Rhythm, JVD (probable), S1, S2, Other ( PMI non diplaced). No: Gallop, Murmur Respiratory: Yes: CTA Bilaterally. No: Accessory Muscle Use, Rales, Wheezes Gastrointestinal: Yes: Normal Bowel Sounds, Soft. No: Tenderness Musculoskeletal: Yes: Other (No kyphosis) Extremities: No: Cyanosis Edema: No Integumentary: No: Jaundice Neurological: Yes: Alert, Oriented (x3) Psychiatric: No: Agitated Labs: CBC, BMP 10/27/18 05:30 10/28/18 06:00 Assessment/Plan ecg: sr, as-vp patient echo 10/14: sev LVE. EF 25-30% global. mod RV hypo. mod-severe MR. PASP at least 48 echo 2016: lve, lvef 20%, mod dec rv fcn, nl rv size, sev lae, mild chris, mod mr , mild pr, mild-mod tr ct chest: mild congestive changes, large right eff, small left tele: NSR/sinus tach, V-P throughout. NSVT x 11b a/p: 78 m hx cad s/p 2v cabg, ICM/syst chf, biv icd (medtronic), htn, hld, dm, cva, pafib here with sob. sob, acute sys chf: -no signs acs -BNP 13-17K here (baseline range 6-9K). large R effusion, small L, + mild congestive parenchymal changes on CT. -was on lasix 40 bid at home -receiving lasix 40 iv bid -10/27: no wt decline here. creat and bicarb stable (bun rising). sob not signif improving, pt reports modest UOP to lasix 40 dose. + accessory muscle use. increase lasix to 80 iv bid, first dose now. -10/28: wt down 2 lbs. bp's at times soft but stable. renal fxn stable. received one dose lasix 80 iv yest, one dose this am--only modest subj UOP. sob unchanged. prob JVD. likely mitral regurg with pulm HTN contributing to ongoing sx's. incr lasix to 100 iv bid, add metolazone x 1 (2.5mg) today. -mod-severe MR noted, with at least mild-mod pulm HTN on echo--likely functional MR. MR will be reassessed as outpt once pt is well diuresed and syst chf meds are optimized. consider jose cruz-clip if remains with signif MR burden at that time -he is mostly V-paced on tele--if he is pacer-dependent (i.e. "functional LBBB") , then he would likely benefit from [employer] (which may also signif improve his MR). consider inpatient transfer to [place] (CHF or EP service), [place] if pt not likely to comply with frequent office visits. will d/w dr ramon -carvedilol, entresto as doing--will titrate entresto dose once bp reassessed when pt closer to euvolemia -biv icd checked recently as outpt VTach: -11 beats NSVT on tele 10/28. has ICD -HF optimization, BB as doing -usual aggressive K/Mag repletion as doing cad: -no anginal sxs -cont home meds htn: -cont home meds hld: -cont statin pafib: -on xarelto
[2018-10-28] MEDS: TAMSULOSIN HCL 0.4 MG CAP PO SCH (08:52)
[2018-10-28] MEDS: AMINO ACIDS/PROTEIN HYDROLYS 30 ML LIQUID.PKT PO SCH ×2 (08:52→17:16)
[2018-10-28] MEDS: MULTIVITAMINS (DAILY MVI) TABLET (FP) PO SCH (09:09)
[2018-10-28] MEDS: CARVEDILOL 25 MG TABLET (FP) PO SCH ×2 (09:10→21:58)
[2018-10-28] MEDS: SPIRONOLACTONE 25 MG TABLET (FP) PO SCH (09:10)
[2018-10-28] MEDS: SACUBITRIL/VALSARTAN 24 MG-26 MG TABLET PO SCH ×2 (09:10→21:58)
[2018-10-28] MEDS: FINASTERIDE 5 MG TABLET (FP) PO SCH (09:10)
[2018-10-28] MEDS ORDERED: FUROSEMIDE 40 MG/4 ML INJECTABLE VIAL IVPUSH SCH (09:47)
[2018-10-28 10:13] LABS: MAGNESIUM 1.7 mg/dL (1.8-2.4)
--- NOTE | 2018-10-28 12:02 | PN ---
Progress Note (short form) - Note Progress Note: PULMONARY States breathing about the same as yesterday. No cough or wheezing. Vital Signs Period Temp Pulse Resp BP Sys/Nunez Pulse Ox Last 24 Hr 97.2 F-98.2 F 86-96 16-20 98-117/52-76 93-95 Gen: mildly tachypneic with speaking Heart: RRR Lung: basilar rales Abd: soft, nontender Ext: no edema CBC, BMP 10/27/18 05:30 10/28/18 06:00 Active Medications Acetaminophen (Tylenol -) 650 mg PO Q6H PRN PRN Reason: PAIN LEVEL 6-10 Last Admin: 10/27/18 15:56 Dose: 650 mg Albuterol/Ipratropium (Duoneb -) 1 amp NEB RQID [facility] Last Admin: 10/27/18 21:00 Dose: Not Given Amino Acids (Prosource No Carb Liquid Pkt) 30 ml PO BID@0800,1730 [facility] Last Admin: 10/28/18 08:52 Dose: 30 ml Carvedilol (Coreg -) 25 mg PO BID [facility] Last Admin: 10/28/18 09:10 Dose: 25 mg Finasteride (Proscar -) 5 mg PO DAILY [facility] Last Admin: 10/28/18 09:10 Dose: 5 mg Furosemide (Lasix Injection -) 100 mg IVPB BID@0600,1400 [facility] Glipizide (Glucotrol -) 10 mg PO BIDAC [facility] Last Admin: 10/28/18 06:21 Dose: Not Given Levothyroxine Sodium (Synthroid -) 50 mcg PO DAILY@0700 [facility] Last Admin: 10/28/18 06:28 Dose: 50 mcg Metolazone (Zaroxolyn -) 2.5 mg PO ONCE ONE Stop: 10/28/18 13:01 Multivitamins/Minerals/Vitamin C (Tab-A-Vit -) 1 tab PO DAILY [facility] Last Admin: 10/28/18 09:09 Dose: 1 tab Rivaroxaban (Xarelto -) 20 mg PO DAILY@1800 [facility] Sacubitril/Valsartan (Entresto 24 Mg-26 Mg Tablet) 1 tab PO BID [facility] Last Admin: 10/28/18 09:10 Dose: 1 tab Spironolactone (Aldactone -) 25 mg PO DAILY [facility] Last Admin: 10/28/18 09:10 Dose: 25 mg Tamsulosin HCl (Flomax -) 0.4 mg PO DAILY@0830 [facility] Last Admin: 10/28/18 08:52 Dose: 0.4 mg A/P Acute on Chronic Systolic Heart Failure Mitral Regurgitation Paroxysmal Atrial Fibrilation CAD s/p CABG HTN DM Hyperlipidemia h/o CVA - continue lasix, aldactone, zaroxolyn - monitor urine output, creatinine - rate control - continue anticoagulation - O2 to keep SpO2>90%
[2018-10-28] MEDS ORDERED: METOLAZONE 2.5 MG TABLET (FP) PO ONE (13:00)
[2018-10-28] MEDS ORDERED: MAGNESIUM SULF 50% (8.12 MEQ/2 ML-1 GM VIAL) IVPB ONE (13:27)
--- NOTE | 2018-10-28 13:29 | PN ---
Progress Note, Physician Chief Complaint: AWAKE ALERT C/O CONSTIPATION - Current Medication List Current Medications: Active Medications Acetaminophen (Tylenol -) 650 mg PO Q6H PRN PRN Reason: PAIN LEVEL 6-10 Last Admin: 10/27/18 15:56 Dose: 650 mg Albuterol/Ipratropium (Duoneb -) 1 amp NEB RQID [facility] Last Admin: 10/27/18 21:00 Dose: Not Given Amino Acids (Prosource No Carb Liquid Pkt) 30 ml PO BID@0800,1730 [facility] Last Admin: 10/28/18 08:52 Dose: 30 ml Carvedilol (Coreg -) 25 mg PO BID [facility] Last Admin: 10/28/18 09:10 Dose: 25 mg Finasteride (Proscar -) 5 mg PO DAILY [facility] Last Admin: 10/28/18 09:10 Dose: 5 mg Furosemide (Lasix Injection -) 100 mg IVPB BID@0600,1400 [facility] Glipizide (Glucotrol -) 10 mg PO BIDAC [facility] Last Admin: 10/28/18 06:21 Dose: Not Given Levothyroxine Sodium (Synthroid -) 50 mcg PO DAILY@0700 [facility] Last Admin: 10/28/18 06:28 Dose: 50 mcg Magnesium Sulfate (Magnesium Sulfate) 1 gm IVPB ONCE ONE Stop: 10/28/18 13:28 Multivitamins/Minerals/Vitamin C (Tab-A-Vit -) 1 tab PO DAILY [facility] Last Admin: 10/28/18 09:09 Dose: 1 tab Rivaroxaban (Xarelto -) 20 mg PO DAILY@1800 [facility] Sacubitril/Valsartan (Entresto 24 Mg-26 Mg Tablet) 1 tab PO BID [facility] Last Admin: 10/28/18 09:10 Dose: 1 tab Spironolactone (Aldactone -) 25 mg PO DAILY [facility] Last Admin: 10/28/18 09:10 Dose: 25 mg Tamsulosin HCl (Flomax -) 0.4 mg PO DAILY@0830 [facility] Last Admin: 10/28/18 08:52 Dose: 0.4 mg - Objective Vital Signs: Vital Signs Temperature 98.2 F 10/28/18 10:00 Pulse Rate 94 H 10/28/18 10:00 Respiratory Rate 20 10/28/18 10:00 Blood Pressure 117/66 10/28/18 10:00 O2 Sat by Pulse Oximetry (%) 95 10/28/18 10:00 Constitutional: Yes: Mild Distress Eyes: Yes: WNL HENT: Yes: WNL Neck: Yes: WNL Cardiovascular: Yes: Pulse Irregular Respiratory: Yes: Rales Gastrointestinal: Yes: Soft Genitourinary: Yes: WNL Musculoskeletal: Yes: Back Pain Edema: Yes Peripheral Pulses WNL: Yes Neurological: Yes: Pre-Existing Deficit ...Motor Strength: LLE, RLE Psychiatric: Yes: WNL Labs: CBC, BMP 10/27/18 05:30 10/28/18 06:00 Problem List - Problems (1) Acute exacerbation of CHF (congestive heart failure) Code(s): I50.9 - HEART FAILURE, UNSPECIFIED (2) Afib Code(s): I48.91 - UNSPECIFIED ATRIAL FIBRILLATION (3) Azotemia Code(s): R79.89 - OTHER SPECIFIED ABNORMAL FINDINGS OF BLOOD CHEMISTRY (4) Acute systolic CHF (congestive heart failure) Code(s): I50.21 - ACUTE SYSTOLIC (CONGESTIVE) HEART FAILURE Assessment/Plan LASIX FOR DIUERISIS OF CHF 02 SUPPORT LABS REVIEWED CHECKING LABS PT CARMELA CLINTON PRN REPLETE MAGNESIUM
--- NOTE | 2018-10-28 14:12 | PN ---
Progress Note, Physician History of Present Illness: Pt seen and examined at bedside. He is awake and alert. He does not feel much different than yesterday. - Current Medication List Current Medications: Active Medications Acetaminophen (Tylenol -) 650 mg PO Q6H PRN PRN Reason: PAIN LEVEL 6-10 Last Admin: 10/27/18 15:56 Dose: 650 mg Albuterol/Ipratropium (Duoneb -) [address] [facility] Last Admin: 10/27/18 21:00 Dose: Not Given Amino Acids (Prosource No Carb Liquid Pkt) 30 ml PO BID@0800,1730 [facility] Last Admin: 10/28/18 08:52 Dose: 30 ml Carvedilol (Coreg -) [address] [facility] Last Admin: 10/28/18 09:10 Dose: 25 mg Finasteride (Proscar -) [address] [facility] Last Admin: 10/28/18 09:10 Dose: 5 mg Furosemide (Lasix Injection -) 100 mg IVPB BID@0600,1400 [facility] Glipizide (Glucotrol -) [address] [facility] Last Admin: 10/28/18 06:21 Dose: Not Given Levothyroxine Sodium (Synthroid -) 50 mcg PO DAILY@0700 [facility] Last Admin: 10/28/18 06:28 Dose: 50 mcg Multivitamins/Minerals/Vitamin C (Tab-A-Vit -) [address] [facility] Last Admin: 10/28/18 09:09 Dose: 1 tab Rivaroxaban (Xarelto -) 20 mg PO DAILY@1800 [facility] Sacubitril/Valsartan (Entresto 24 Mg-26 Mg Tablet) [address] [facility] Last Admin: 10/28/18 09:10 Dose: 1 tab Senna (Senna -) [address] [facility] Spironolactone (Aldactone -) [address] [facility] Last Admin: 10/28/18 09:10 Dose: 25 mg Tamsulosin HCl (Flomax -) 0.4 mg PO DAILY@0830 [facility] Last Admin: 10/28/18 08:52 Dose: 0.4 mg - Objective Vital Signs: Vital Signs Temperature 98.2 F 10/28/18 10:00 Pulse Rate 94 H 10/28/18 10:00 Respiratory Rate 20 01/01/19 10:00 Blood Pressure 117/66 01/01/19 10:00 O2 Sat by Pulse Oximetry (%) 95 10/28/18 10:00 Constitutional: Yes: Calm Eyes: Yes: Conjunctiva Clear HENT: Yes: Atraumatic Cardiovascular: Yes: S1, S2 Respiratory: Yes: On Nasal O2, Rhonchi Gastrointestinal: Yes: Soft Genitourinary: Yes: WNL Musculoskeletal: Yes: WNL Edema: Yes Edema: LLE: 1+, RLE: 1+ Neurological: Yes: Oriented Psychiatric: Yes: Oriented Labs: CBC, BMP 10/27/18 05:30 10/28/18 06:00 Problem List - Problems (1) Proteinuria Code(s): R80.9 - PROTEINURIA, UNSPECIFIED (2) Azotemia Code(s): R79.89 - OTHER SPECIFIED ABNORMAL FINDINGS OF BLOOD CHEMISTRY (3) Acute exacerbation of CHF (congestive heart failure) Code(s): I50.9 - HEART FAILURE, UNSPECIFIED (4) Afib Code(s): I48.91 - UNSPECIFIED ATRIAL FIBRILLATION (5) CVA (cerebral vascular accident) Code(s): I63.9 - CEREBRAL INFARCTION, UNSPECIFIED (6) Congestive heart failure Code(s): I50.9 - HEART FAILURE, UNSPECIFIED Qualifiers: Heart failure type: other Qualified Code(s): I50.9 - Heart failure, unspecified (7) Edema Code(s): R60.9 - EDEMA, UNSPECIFIED Qualifiers: Edema type: unspecified Qualified Code(s): R60.9 - Edema, unspecified Assessment/Plan Current Medications Generic Name Dose Route Start Last Admin Trade Name Castilloq PRN Reason Stop Dose Admin Acetaminophen 650 mg 10/27/18 15:45 10/27/18 15:56 Tylenol - PO 650 mg Q6H PRN Administration PAIN LEVEL 6-10 Albuterol/Ipratropium 1 amp 10/25/18 12:15 10/27/18 21:00 Duoneb - NEB Not Given RQID [facility] Amino Acids 30 ml 10/25/18 17:30 10/28/18 08:52 Prosource No Carb Liquid Pkt PO 30 ml BID@0800,1730 [facility] Administration Carvedilol 25 mg 10/24/18 10:00 10/28/18 09:10 Coreg - PO 25 mg BID [facility] Administration Finasteride 5 mg 10/24/18 10:00 10/28/18 09:10 Proscar - PO [address] [facility] Administration Furosemide 100 mg 10/28/18 14:00 Lasix Injection - IVPB BID@0600,1400 [facility] Glipizide 10 mg 10/24/18 10:00 10/28/18 06:21 Glucotrol - PO Not Given BIDAC [facility] Levothyroxine Sodium 50 mcg 10/24/18 07:00 10/28/18 06:28 Synthroid - PO 50 mcg DAILY@0700 [facility] Administration Multivitamins/Minerals/Vitamin C 1 tab 10/24/18 10:00 10/28/18 09:09 Tab-A-Vit - PO [address] [facility] Administration Rivaroxaban 20 mg 10/28/18 18:00 Xarelto - PO DAILY@1800 [facility] Sacubitril/Valsartan 1 tab 10/24/18 10:00 10/28/18 09:10 Entresto 24 Mg-26 Mg Tablet PO [address] [facility] Administration Senna 2 tab 10/28/18 22:00 Senna - PO HS [facility] Spironolactone 25 mg 10/24/18 10:00 10/28/18 09:10 Aldactone - PO [address] [facility] Administration Tamsulosin HCl 0.4 mg 10/24/18 08:30 10/28/18 08:52 Flomax - PO 0.4 mg DAILY@0830 [facility] Administration Impression 1. azotemia 2. proteinuria 3. chf 4. a-fib 5. hypothyroidism 6. CKD Plan - monitor renal function while on high dose lasix - cardio input appreciated, possible transfer to tertiary care - discussed proteinuria with pt, cont with arb - monitor potassium - cont arb for proteinuria - will follow - remains volume overloaded - discussed with family Dr Rae
[2018-10-28] MEDS: FUROSEMIDE 100 MG/10 ML INJECTABLE VIAL IVPB SCH (14:16)
[2018-10-28] MEDS: RIVAROXABAN 20 MG TABLET PO SCH (17:16)
[2018-10-28] MEDS: SENNOSIDES 8.6MG TABLET (FP) PO SCH (21:58)
[2018-10-29] MEDS ORDERED: PT OWN MED DRAWER 7, Y5N ONE ×4 (06:23→21:44)
[2018-10-29] MEDS: LEVOTHYROXINE NA 50 MCG TABLET (FP) PO SCH (06:30)
[2018-10-29] MEDS: FUROSEMIDE 100 MG/10 ML INJECTABLE VIAL IVPB SCH ×2 (06:30→15:38)
[2018-10-29] MEDS: ALBUTEROL SO4 2.5/IPRATROPIUM 0.5 INH SOL 3 ML VIAL.NEB. NEB SCH ×4 (07:15→20:23)
[2018-10-29 07:44] LABS: MAGNESIUM 1.7 mg/dL (1.8-2.4)
[2018-10-29] MEDS ORDERED: glipiZIDE 5 MG TABLET (FP) ONE ×2 (08:59→17:05)
[2018-10-29] MEDS: TAMSULOSIN HCL 0.4 MG CAP PO SCH (09:01)
[2018-10-29] MEDS: glipiZIDE 10 MG TABLET (FP) PO SCH ×2 (09:01→17:09)
[2018-10-29] MEDS: SPIRONOLACTONE 25 MG TABLET (FP) PO SCH (09:02)
[2018-10-29] MEDS: FINASTERIDE 5 MG TABLET (FP) PO SCH (09:02)
[2018-10-29] MEDS: AMINO ACIDS/PROTEIN HYDROLYS 30 ML LIQUID.PKT PO SCH ×2 (09:02→17:09)
[2018-10-29] MEDS: CARVEDILOL 25 MG TABLET (FP) PO SCH ×2 (09:02→21:50)
[2018-10-29] MEDS: MULTIVITAMINS (DAILY MVI) TABLET (FP) PO SCH (09:02)
[2018-10-29] MEDS: SACUBITRIL/VALSARTAN 24 MG-26 MG TABLET PO SCH ×2 (09:06→21:51)
--- NOTE | 2018-10-29 09:34 | PN ---
Progress Note (short form) - Note Progress Note: Chief Complaint: sob History of Present Illness: feels better today, breathing improving. no chest pain, palps, dizziness, lightheadedness. lying flat in bed no cigs Current Medications Acetaminophen (Tylenol -) 650 mg PO Q6H PRN PRN Reason: PAIN LEVEL 6-10 Last Admin: 10/27/18 15:56 Dose: 650 mg Albuterol/Ipratropium (Duoneb -) 1 amp NEB RQID [facility] Last Admin: 10/29/18 07:15 Dose: 1 amp Amino Acids (Prosource No Carb Liquid Pkt) 30 ml PO BID@0800,1730 [facility] Last Admin: 10/29/18 09:02 Dose: 30 ml Carvedilol (Coreg -) 25 mg PO BID [facility] Last Admin: 10/29/18 09:02 Dose: 25 mg Finasteride (Proscar -) 5 mg PO DAILY [facility] Last Admin: 10/29/18 09:02 Dose: 5 mg Furosemide (Lasix Injection -) 100 mg IVPB BID@0600,1400 [facility] Last Admin: 10/29/18 06:30 Dose: 100 mg Glipizide (Glucotrol -) 10 mg PO BIDAC [facility] Last Admin: 10/29/18 09:01 Dose: 10 mg Levothyroxine Sodium (Synthroid -) 50 mcg PO DAILY@0700 [facility] Last Admin: 10/29/18 06:30 Dose: 50 mcg Multivitamins/Minerals/Vitamin C (Tab-A-Vit -) 1 tab PO DAILY [facility] Last Admin: 10/29/18 09:02 Dose: 1 tab Rivaroxaban (Xarelto -) 20 mg PO DAILY@1800 [facility] Last Admin: 10/28/18 17:16 Dose: 20 mg Sacubitril/Valsartan (Entresto 24 Mg-26 Mg Tablet) 1 tab PO BID [facility] Last Admin: 10/29/18 09:06 Dose: 1 tab Senna (Senna -) 2 tab PO HS [facility] Last Admin: 10/28/18 21:58 Dose: 2 tab Spironolactone (Aldactone -) 25 mg PO DAILY [facility] Last Admin: 10/29/18 09:02 Dose: 25 mg Tamsulosin HCl (Flomax -) 0.4 mg PO DAILY@0830 [facility] Last Admin: 10/29/18 09:01 Dose: 0.4 mg - Objective Vital Signs Period Temp Pulse Resp BP Sys/Nunez Pulse Ox Last 24 Hr 97.3 F-98.2 F 88-103 18-20 103-125/59-72 95-95 Constitutional: Yes: No Distress, Calm Eyes: No: Sclera Icterus HENT: No: Nasal Congestion Cardiovascular: Yes: Regular Rate and Rhythm, JVD (probable), S1, S2, Other ( PMI non diplaced). No: Gallop, Murmur Respiratory: Yes: CTA Bilaterally. No: Accessory Muscle Use, Rales, Wheezes Gastrointestinal: Yes: Normal Bowel Sounds, Soft. No: Tenderness Musculoskeletal: Yes: Other (No kyphosis) Extremities: No: Cyanosis Edema: No Integumentary: No: Jaundice Neurological: Yes: Alert, Oriented (x3) Psychiatric: No: Agitated Assessment/Plan ecg: sr, as-vp revenue cycle echo 10/14: sev LVE. EF 25-30% global. mod RV hypo. mod-severe MR. PASP at least 48 echo 2016: lve, lvef 20%, mod dec rv fcn, nl rv size, sev lae, mild chris, mod mr , mild pr, mild-mod tr ct chest: mild congestive changes, large right eff, small left tele: NSR/sinus tach, V-P throughout. a/p: 78 m hx cad s/p 2v cabg, ICM/syst chf, biv icd (medtronic), htn, hld, dm, cva, pafib here with sob. sob, acute sys chf: -no signs acs -BNP 13-17K here (baseline range 6-9K). large R effusion, small L, + mild congestive parenchymal changes on CT. -was on lasix 40 bid at home -receiving lasix 40 iv bid -10/27: no wt decline here. creat and bicarb stable (bun rising). sob not signif improving, pt reports modest UOP to lasix 40 dose. + accessory muscle use. increase lasix to 80 iv bid, first dose now. -10/28: wt down 2 lbs. bp's at times soft but stable. renal fxn stable. received one dose lasix 80 iv yest, one dose this am--only modest subj UOP. sob unchanged. prob JVD. likely mitral regurg with pulm HTN contributing to ongoing sx's. incr lasix to 100 iv bid, add metolazone x 1 (2.5mg) today. -10/29: weight stable today, Cr stable, continue lasix 100 mg IV BID, give metolazone 2.5 mg x 1 prior to PM dose -mod-severe MR noted, with at least mild-mod pulm HTN on echo--likely functional MR. MR will be reassessed as outpt once pt is well diuresed and syst chf meds are optimized. consider jose cruz-clip if remains with signif MR burden at that time -he is mostly V-paced on tele--if he is pacer-dependent (i.e. "functional LBBB") , then he would likely benefit from [employer] (which may also signif improve his MR). will consider inpatient transfer to [place] if not improving (CHF or EP service -carvedilol, entresto as doing--will titrate entresto dose once bp reassessed when pt closer to euvolemia -biv icd checked recently as outpt VTach: -11 beats NSVT on tele 10/28. has ICD -HF optimization, BB as doing -usual aggressive K/Mag repletion as doing cad: -no anginal sxs -cont home meds htn: -cont home meds hld: -cont statin pafib: -on xarelto
[2018-10-29 10:37] LABS: ANION GAP 9 MMOL/L (8-16); BLOOD UREA NITROGEN 58 mg/dL (7-18); CALCIUM 7.8 mg/dL (8.5-10.1); CHLORIDE 107 mmol/L (98-107); CO2 23 mmol/L (21-32); CREATININE 0.8 mg/dL (0.55-1.3); GLUCOSE,RANDOM 88 mg/dL (74-106); POTASSIUM 4.1 mmol/L (3.5-5.1); SODIUM 138 mmol/L (136-145)
--- NOTE | 2018-10-29 12:01 | PN ---
Progress Note, Physician History of Present Illness: Pt seen and examined at bedside. He is awake and alert. He denies chest pain. - Current Medication List Current Medications: Active Medications Acetaminophen (Tylenol -) 650 mg PO Q6H PRN PRN Reason: PAIN LEVEL 6-10 Last Admin: 10/27/18 15:56 Dose: 650 mg Albuterol/Ipratropium (Duoneb -) 1 amp NEB RQID [facility] Last Admin: 10/29/18 11:21 Dose: 1 amp Amino Acids (Prosource No Carb Liquid Pkt) 30 ml PO BID@0800,1730 [facility] Last Admin: 10/29/18 09:02 Dose: 30 ml Carvedilol (Coreg -) 25 mg PO BID [facility] Last Admin: 10/29/18 09:02 Dose: 25 mg Finasteride (Proscar -) 5 mg PO DAILY [facility] Last Admin: 10/29/18 09:02 Dose: 5 mg Furosemide (Lasix Injection -) 100 mg IVPB BID@0600,1400 [facility] Last Admin: 10/29/18 06:30 Dose: 100 mg Glipizide (Glucotrol -) 10 mg PO BIDAC [facility] Last Admin: 10/29/18 09:01 Dose: 10 mg Levothyroxine Sodium (Synthroid -) 50 mcg PO DAILY@0700 [facility] Last Admin: 10/29/18 06:30 Dose: 50 mcg Metolazone (Zaroxolyn -) 2.5 mg PO ONCE ONE Stop: 10/29/18 13:31 Multivitamins/Minerals/Vitamin C (Tab-A-Vit -) 1 tab PO DAILY [facility] Last Admin: 10/29/18 09:02 Dose: 1 tab Rivaroxaban (Xarelto -) 20 mg PO DAILY@1800 [facility] Last Admin: 10/28/18 17:16 Dose: 20 mg Sacubitril/Valsartan (Entresto 24 Mg-26 Mg Tablet) 1 tab PO BID [facility] Last Admin: 10/29/18 09:06 Dose: 1 tab Senna (Senna -) 2 tab PO HS [facility] Last Admin: 10/28/18 21:58 Dose: 2 tab Spironolactone (Aldactone -) 25 mg PO DAILY [facility] Last Admin: 10/29/18 09:02 Dose: 25 mg Tamsulosin HCl (Flomax -) 0.4 mg PO DAILY@0830 [facility] Last Admin: 10/29/18 09:01 Dose: 0.4 mg - Objective Vital Signs: Vital Signs Temperature 97.3 F L 10/29/18 09:00 Pulse Rate 97 H 10/29/18 09:00 Respiratory Rate 20 10/29/18 09:00 Blood Pressure 118/77 10/29/18 09:00 O2 Sat by Pulse Oximetry (%) 93 L 10/29/18 09:00 Constitutional: Yes: Calm Eyes: Yes: Conjunctiva Clear HENT: Yes: Atraumatic Cardiovascular: Yes: S1, S2 Respiratory: Yes: Rhonchi Gastrointestinal: Yes: Normal Bowel Sounds, Soft Genitourinary: Yes: WNL Musculoskeletal: Yes: WNL Edema: Yes Edema: LLE: 1+, RLE: 1+ Neurological: Yes: Oriented Psychiatric: Yes: Oriented Labs: CBC, BMP 10/27/18 05:30 10/29/18 06:50 Problem List - Problems (1) Proteinuria Code(s): R80.9 - PROTEINURIA, UNSPECIFIED (2) Azotemia Code(s): R79.89 - OTHER SPECIFIED ABNORMAL FINDINGS OF BLOOD CHEMISTRY (3) Acute exacerbation of CHF (congestive heart failure) Code(s): I50.9 - HEART FAILURE, UNSPECIFIED (4) Afib Code(s): I48.91 - UNSPECIFIED ATRIAL FIBRILLATION (5) CVA (cerebral vascular accident) Code(s): I63.9 - CEREBRAL INFARCTION, UNSPECIFIED (6) Congestive heart failure Code(s): I50.9 - HEART FAILURE, UNSPECIFIED Qualifiers: Heart failure type: other Qualified Code(s): I50.9 - Heart failure, unspecified (7) Edema Code(s): R60.9 - EDEMA, UNSPECIFIED Qualifiers: Edema type: unspecified Qualified Code(s): R60.9 - Edema, unspecified Assessment/Plan Current Medications Generic Name Dose Route Start Last Admin Trade Name Freq PRN Reason Stop Dose Admin Acetaminophen 650 mg 10/27/18 15:45 10/27/18 15:56 Tylenol - PO 650 mg Q6H PRN Administration PAIN LEVEL 6-10 Albuterol/Ipratropium 1 amp 10/25/18 12:15 10/29/18 11:21 Duoneb - NEB 1 amp RQID [facility] Administration Amino Acids 30 ml 10/25/18 17:30 10/29/18 09:02 Prosource No Carb Liquid Pkt PO 30 ml BID@0800,1730 [facility] Administration Carvedilol 25 mg 10/24/18 10:00 10/29/18 09:02 Coreg - PO 25 mg BID [facility] Administration Finasteride 5 mg 10/24/18 10:00 10/29/18 09:02 Proscar - PO 5 mg DAILY [facility] Administration Furosemide 100 mg 10/28/18 14:00 10/29/18 06:30 Lasix Injection - IVPB 100 mg BID@0600,1400 [facility] Administration Glipizide 10 mg 10/24/18 10:00 10/29/18 09:01 Glucotrol - PO 10 mg BIDAC [facility] Administration Levothyroxine Sodium 50 mcg 10/24/18 07:00 10/29/18 06:30 Synthroid - PO 50 mcg DAILY@0700 [facility] Administration Metolazone 2.5 mg 10/29/18 13:30 Zaroxolyn - PO 10/29/18 13:31 ONCE ONE Multivitamins/Minerals/Vitamin C 1 tab 10/24/18 10:00 10/29/18 09:02 Tab-A-Vit - PO 1 tab DAILY [facility] Administration Rivaroxaban 20 mg 10/28/18 18:00 10/28/18 17:16 Xarelto - PO 20 mg DAILY@1800 [facility] Administration Sacubitril/Valsartan 1 tab 10/24/18 10:00 10/29/18 09:06 Entresto 24 Mg-26 Mg Tablet PO 1 tab BID [facility] Administration Senna 2 tab 10/28/18 22:00 10/28/18 21:58 Senna - PO 2 tab HS [facility] Administration Spironolactone 25 mg 10/24/18 10:00 10/29/18 09:02 Aldactone - PO 25 mg DAILY [facility] Administration Tamsulosin HCl 0.4 mg 10/24/18 08:30 10/29/18 09:01 Flomax - PO 0.4 mg DAILY@0830 [facility] Administration Impression 1. azotemia 2. proteinuria 3. chf 4. a-fib 5. hypothyroidism 6. CKD Plan - cont with diuretics - monitor renal function - no great change from yesterday - cardio follow up - keep on arb - will follow - remains volume overloaded - discussed with family Dr Rae
--- NOTE | 2018-10-29 12:59 | PN ---
Progress Note, Physician History of Present Illness: PULMONARY ALERT,LESS DYSPNEIC,OOB-CHAIR - Current Medication List Current Medications: Active Medications Acetaminophen (Tylenol -) 650 mg PO Q6H PRN PRN Reason: PAIN LEVEL 6-10 Last Admin: 10/27/18 15:56 Dose: 650 mg Albuterol/Ipratropium (Duoneb -) 1 amp NEB RQID [facility] Last Admin: 10/29/18 11:21 Dose: 1 amp Amino Acids (Prosource No Carb Liquid Pkt) 30 ml PO BID@0800,1730 [facility] Last Admin: 10/29/18 09:02 Dose: 30 ml Carvedilol (Coreg -) 25 mg PO BID [facility] Last Admin: 10/29/18 09:02 Dose: 25 mg Finasteride (Proscar -) 5 mg PO DAILY [facility] Last Admin: 10/29/18 09:02 Dose: 5 mg Furosemide (Lasix Injection -) 100 mg IVPB BID@0600,1400 [facility] Last Admin: 10/29/18 06:30 Dose: 100 mg Glipizide (Glucotrol -) 10 mg PO BIDAC [facility] Last Admin: 10/29/18 09:01 Dose: 10 mg Levothyroxine Sodium (Synthroid -) 50 mcg PO DAILY@0700 [facility] Last Admin: 10/29/18 06:30 Dose: 50 mcg Metolazone (Zaroxolyn -) 2.5 mg PO ONCE ONE Stop: 10/29/18 13:31 Multivitamins/Minerals/Vitamin C (Tab-A-Vit -) 1 tab PO DAILY [facility] Last Admin: 10/29/18 09:02 Dose: 1 tab Rivaroxaban (Xarelto -) 20 mg PO DAILY@1800 [facility] Last Admin: 10/28/18 17:16 Dose: 20 mg Sacubitril/Valsartan (Entresto 24 Mg-26 Mg Tablet) 1 tab PO BID [facility] Last Admin: 10/29/18 09:06 Dose: 1 tab Senna (Senna -) 2 tab PO HS [facility] Last Admin: 10/28/18 21:58 Dose: 2 tab Spironolactone (Aldactone -) 25 mg PO DAILY [facility] Last Admin: 10/29/18 09:02 Dose: 25 mg Tamsulosin HCl (Flomax -) 0.4 mg PO DAILY@0830 [facility] Last Admin: 10/29/18 09:01 Dose: 0.4 mg - Objective Vital Signs: Vital Signs Temperature 97.3 F L 10/29/18 09:00 Pulse Rate 97 H 10/29/18 09:00 Respiratory Rate 20 10/29/18 09:00 Blood Pressure 118/77 10/29/18 09:00 O2 Sat by Pulse Oximetry (%) 93 L 10/29/18 09:00 Constitutional: Yes: Well Nourished, Calm Eyes: Yes: WNL HENT: Yes: WNL Neck: Yes: WNL Cardiovascular: Yes: Regular Rate and Rhythm, S1, S2 Respiratory: Yes: Rales (BIBASILAR RALES) Gastrointestinal: Yes: Normal Bowel Sounds, Soft Extremities: Yes: WNL Edema: No Labs: CBC, BMP 10/27/18 05:30 10/29/18 06:50 Assessment/Plan (1) Acute exacerbation of CHF (congestive heart failure) Code(s): I50.9 - HEART FAILURE, UNSPECIFIED (2) Afib Code(s): I48.91 - UNSPECIFIED ATRIAL FIBRILLATION (3) CVA (cerebral vascular accident) Code(s): I63.9 - CEREBRAL INFARCTION, UNSPECIFIED (4) Congestive heart failure Code(s): I50.9 - HEART FAILURE, UNSPECIFIED Qualifiers: Heart failure type: other Qualified Code(s): I50.9 - Heart failure, unspecified (5) Edema Code(s): R60.9 - EDEMA, UNSPECIFIED Qualifiers: Edema type: unspecified Qualified Code(s): R60.9 - Edema, unspecified (6) EYAK (hard of hearing) Code(s): H91.90 - UNSPECIFIED HEARING LOSS, UNSPECIFIED EAR (7) HTN (hypertension) Code(s): I10 - ESSENTIAL (PRIMARY) HYPERTENSION (8) Pleural effusion on right Code(s): J90 - PLEURAL EFFUSION, NOT ELSEWHERE CLASSIFIED (9) Spinal stenosis at L4-L5 level Code(s): M48.061 - SPINAL STENOSIS, LUMBAR REGION WITHOUT NEUROGENIC CB Assessment/Plan IV LASIX, ALDACTONE,ZAROXOYLN FOLLOW CXR O2 SUPPLEMENTATION CARDIAC MEDS RATE CONTROL DAILY WTS DR COLLINS Problem List - Problems (1) Acute exacerbation of CHF (congestive heart failure) Code(s): I50.9 - HEART FAILURE, UNSPECIFIED (2) Afib Code(s): I48.91 - UNSPECIFIED ATRIAL FIBRILLATION (3) CVA (cerebral vascular accident) Code(s): I63.9 - CEREBRAL INFARCTION, UNSPECIFIED (4) Congestive heart failure Code(s): I50.9 - HEART FAILURE, UNSPECIFIED Qualifiers: Heart failure type: other Qualified Code(s): I50.9 - Heart failure, unspecified (5) Edema Code(s): R60.9 - EDEMA, UNSPECIFIED Qualifiers: Edema type: unspecified Qualified Code(s): R60.9 - Edema, unspecified (6) EYAK (hard of hearing) Code(s): H91.90 - UNSPECIFIED HEARING LOSS, UNSPECIFIED EAR (7) HTN (hypertension) Code(s): I10 - ESSENTIAL (PRIMARY) HYPERTENSION (8) Pleural effusion on right Code(s): J90 - PLEURAL EFFUSION, NOT ELSEWHERE CLASSIFIED (9) Spinal stenosis at L4-L5 level Code(s): M48.061 - SPINAL STENOSIS, LUMBAR REGION WITHOUT NEUROGENIC CB
[2018-10-29] MEDS ORDERED: METOLAZONE 2.5 MG TABLET (FP) PO ONE (13:30)
--- NOTE | 2018-10-29 15:55 | PN ---
Progress Note, Physician Chief Complaint: AWAKE BEDSIDE C/O LACK OF SLEEP - Current Medication List Current Medications: Active Medications Acetaminophen (Tylenol -) 650 mg PO Q6H PRN PRN Reason: PAIN LEVEL 6-10 Last Admin: 10/27/18 15:56 Dose: 650 mg Albuterol/Ipratropium (Duoneb -) 1 amp NEB RQID [facility] Last Admin: 10/29/18 15:46 Dose: 1 amp Amino Acids (Prosource No Carb Liquid Pkt) 30 ml PO BID@0800,1730 [facility] Last Admin: 10/29/18 09:02 Dose: 30 ml Carvedilol (Coreg -) 25 mg PO BID [facility] Last Admin: 10/29/18 09:02 Dose: 25 mg Finasteride (Proscar -) 5 mg PO DAILY [facility] Last Admin: 10/29/18 09:02 Dose: 5 mg Furosemide (Lasix Injection -) 100 mg IVPB BID@0600,1400 [facility] Last Admin: 10/29/18 15:38 Dose: 100 mg Glipizide (Glucotrol -) 10 mg PO BIDAC [facility] Last Admin: 10/29/18 09:01 Dose: 10 mg Levothyroxine Sodium (Synthroid -) 50 mcg PO DAILY@0700 [facility] Last Admin: 10/29/18 06:30 Dose: 50 mcg Multivitamins/Minerals/Vitamin C (Tab-A-Vit -) 1 tab PO DAILY [facility] Last Admin: 10/29/18 09:02 Dose: 1 tab Rivaroxaban (Xarelto -) 20 mg PO DAILY@1800 [facility] Last Admin: 10/28/18 17:16 Dose: 20 mg Sacubitril/Valsartan (Entresto 24 Mg-26 Mg Tablet) 1 tab PO BID [facility] Last Admin: 10/29/18 09:06 Dose: 1 tab Senna (Senna -) 2 tab PO HS [facility] Last Admin: 10/28/18 21:58 Dose: 2 tab Spironolactone (Aldactone -) 25 mg PO DAILY [facility] Last Admin: 10/29/18 09:02 Dose: 25 mg Tamsulosin HCl (Flomax -) 0.4 mg PO DAILY@0830 [facility] Last Admin: 10/29/18 09:01 Dose: 0.4 mg - Objective Vital Signs: Vital Signs Temperature 97.2 F L 10/29/18 14:07 Pulse Rate 84 10/29/18 14:58 Respiratory Rate 18 10/29/18 14:07 Blood Pressure 103/65 10/29/18 14:58 O2 Sat by Pulse Oximetry (%) 93 L 10/29/18 09:00 Constitutional: Yes: Mild Distress Eyes: Yes: WNL HENT: Yes: WNL Neck: Yes: WNL Cardiovascular: Yes: Pulse Irregular Respiratory: Yes: Diminished, On Nasal O2 Gastrointestinal: Yes: Soft Genitourinary: Yes: WNL Musculoskeletal: Yes: Muscle Weakness Extremities: Yes: WNL Edema: Yes Edema: LLE: Trace, RLE: Trace Peripheral Pulses WNL: Yes Integumentary: Yes: WNL, Tenting Wound/Incision: Yes: Clean/Dry Neurological: Yes: Other Psychiatric: Yes: Other Labs: CBC, BMP 10/27/18 05:30 10/29/18 06:50 Problem List - Problems (1) Acute exacerbation of CHF (congestive heart failure) Code(s): I50.9 - HEART FAILURE, UNSPECIFIED (2) Afib Code(s): I48.91 - UNSPECIFIED ATRIAL FIBRILLATION (3) Azotemia Code(s): R79.89 - OTHER SPECIFIED ABNORMAL FINDINGS OF BLOOD CHEMISTRY (4) Acute systolic CHF (congestive heart failure) Code(s): I50.21 - ACUTE SYSTOLIC (CONGESTIVE) HEART FAILURE Assessment/Plan CONTINUE DIURESIS WITH ALDACTONE/METOLAZONE 02 SUPPORT OOB TO CHAIR PT CARMELA DC PLANNING TOMORROW
[2018-10-29] MEDS ORDERED: diphenhydrAMINE HCL 25 MG CAPSULE (FP) PO PRN (17:46)
[2018-10-29] MEDS ORDERED: MAGNESIUM SULF 50% (8.12 MEQ/2 ML-1 GM VIAL) IVPB ONE (17:49)
[2018-10-29] MEDS: RIVAROXABAN 20 MG TABLET PO SCH (18:16)
[2018-10-29] MEDS: SENNOSIDES 8.6MG TABLET (FP) PO SCH (21:51)
[2018-10-30] MEDS ORDERED: PT OWN MED DRAWER 7, Y5N ONE ×2 (06:29→10:05)
[2018-10-30] MEDS: LEVOTHYROXINE NA 50 MCG TABLET (FP) PO SCH (06:38)
[2018-10-30] MEDS: FUROSEMIDE 100 MG/10 ML INJECTABLE VIAL IVPB SCH ×2 (06:38→15:57)
[2018-10-30] MEDS: ALBUTEROL SO4 2.5/IPRATROPIUM 0.5 INH SOL 3 ML VIAL.NEB. NEB SCH ×2 (07:29→11:14)
[2018-10-30 07:55] LABS: MAGNESIUM 2.1 mg/dL (1.8-2.4)
[2018-10-30] MEDS ORDERED: glipiZIDE 5 MG TABLET (FP) ONE ×2 (10:03→15:52)
[2018-10-30] MEDS: glipiZIDE 10 MG TABLET (FP) PO SCH ×2 (10:14→15:58)
[2018-10-30] MEDS: AMINO ACIDS/PROTEIN HYDROLYS 30 ML LIQUID.PKT PO SCH (10:14)
[2018-10-30] MEDS: TAMSULOSIN HCL 0.4 MG CAP PO SCH (10:15)
[2018-10-30] MEDS: SPIRONOLACTONE 25 MG TABLET (FP) PO SCH (10:15)
[2018-10-30] MEDS: SACUBITRIL/VALSARTAN 24 MG-26 MG TABLET PO SCH (10:16)
[2018-10-30] MEDS: FINASTERIDE 5 MG TABLET (FP) PO SCH (10:16)
[2018-10-30] MEDS: CARVEDILOL 25 MG TABLET (FP) PO SCH (10:16)
[2018-10-30] MEDS: MULTIVITAMINS (DAILY MVI) TABLET (FP) PO SCH (10:17)
--- NOTE | 2018-10-30 12:21 | PN ---
Progress Note (short form) - Note Progress Note: s: no cp palps dizzy. sob persist o: Vital Signs Period Temp Pulse Resp BP Sys/Nunez Pulse Ox Last 24 Hr 97 F-98.1 F 83-100 18-22 94-122/55-78 94 nad no jvd rrr s1s2 no mrg dec bs right, nl eff aaox3 trace le edema bl no c/c abd nt nd pos bs no jaundice diaphoresis Current Medications Generic Name Dose Route Start Last Admin Trade Name Freq PRN Reason Stop Dose Admin Acetaminophen 650 mg 10/27/18 15:45 10/27/18 15:56 Tylenol - PO 650 mg Q6H PRN Administration PAIN LEVEL 6-10 Albuterol/Ipratropium 1 amp 10/25/18 12:15 10/30/18 11:14 Duoneb - NEB 1 amp RQID [facility] Administration Amino Acids 30 ml 10/25/18 17:30 10/30/18 10:14 Prosource No Carb Liquid Pkt PO 30 ml BID@0800,1730 [facility] Administration Carvedilol 25 mg 10/24/18 10:00 10/30/18 10:16 Coreg - PO 25 mg BID [facility] Administration Diphenhydramine HCl 25 mg 10/29/18 17:46 Benadryl - PO HS PRN INSOMNIA Finasteride 5 mg 10/24/18 10:00 10/30/18 10:16 Proscar - PO 5 mg DAILY [facility] Administration Furosemide 100 mg 10/28/18 14:00 10/30/18 06:38 Lasix Injection - IVPB 100 mg BID@0600,1400 [facility] Administration Glipizide 10 mg 10/24/18 10:00 10/30/18 10:14 Glucotrol - PO 10 mg BIDAC [facility] Administration Levothyroxine Sodium 50 mcg 10/24/18 07:00 10/30/18 06:38 Synthroid - PO 50 mcg DAILY@0700 [facility] Administration Multivitamins/Minerals/Vitamin C 1 tab 10/24/18 10:00 10/30/18 10:17 Tab-A-Vit - PO 1 tab DAILY [facility] Administration Rivaroxaban 20 mg 10/28/18 18:00 10/29/18 18:16 Xarelto - PO 20 mg DAILY@1800 [facility] Administration Sacubitril/Valsartan 1 tab 10/24/18 10:00 10/30/18 10:16 Entresto 24 Mg-26 Mg Tablet PO 1 tab BID [facility] Administration Senna 2 tab 10/28/18 22:00 10/29/18 21:51 Senna - PO Not Given HS [facility] Spironolactone 25 mg 10/24/18 10:00 10/30/18 10:15 Aldactone - PO 25 mg DAILY [facility] Administration Tamsulosin HCl 0.4 mg 10/24/18 08:30 10/30/18 10:15 Flomax - PO 0.4 mg DAILY@0830 [facility] Administration CBC, BMP 10/27/18 05:30 10/29/18 06:50 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 EF 25-30% global. mod RV hypo. mod-severe MR. PASP at least 48 echo 2015: lve, lvef 20%, mod dec rv fcn, nl rv size, sev lae, mild chris, mod mr , mild pr, mild-mod tr ct chest: mild congestive changes, large right eff, small left tele: NSR/sinus tach, V-P throughout. a/p: 78 m hx cad s/p 2v cabg, ICM/syst chf, biv icd (medtronic), htn, hld, dm, cva, pafib here with sob. sob, acute sys chf: -no signs acs -BNP 13-17K here (baseline range 6-9K). large R effusion, small L, + mild congestive parenchymal changes on CT. -was on lasix 40 bid at home -receiving lasix 40 iv bid -10/27: no wt decline here. creat and bicarb stable (bun rising). sob not signif improving, pt reports modest UOP to lasix 40 dose. + accessory muscle use. increase lasix to 80 iv bid, first dose now. -10/28: wt down 2 lbs. bp's at times soft but stable. renal fxn stable. received one dose lasix 80 iv yest, one dose this am--only modest subj UOP. sob unchanged. prob JVD. likely mitral regurg with pulm HTN contributing to ongoing sx's. incr lasix to 100 iv bid, add metolazone x 1 (2.5mg) today. -10/29: weight stable today, Cr stable, continue lasix 100 mg IV BID, give metolazone 2.5 mg x 1 prior to PM dose -10/30: no sig improvement in vol status despite high dose diuretics. Discussed with pt/ about transfer to tertiary care center for eval by chf team, they are agreeable. They want to go to [facility] because they see Dr Muller there and it is close for them. I spoke with Dr Muller's office today and left a message, waiting for him to call back in regards to transfer. -mod-severe MR noted, with at least mild-mod pulm HTN on echo--likely functional MR. MR will be reassessed as outpt once pt is well diuresed and syst chf meds are optimized. consider jose cruz-clip if remains with signif MR burden at that time -he is mostly V-paced on tele--if he is pacer-dependent (i.e. "functional LBBB") , then he would likely benefit from WAX BLENDER (which may also signif improve his MR) -carvedilol, entresto as doing--will titrate entresto dose once bp reassessed when pt closer to euvolemia -biv icd checked recently as outpt VTach: -11 beats NSVT on tele 10/28. has ICD -HF optimization, BB as doing -usual aggressive K/Mag repletion as doing cad: -no anginal sxs -cont home meds htn: -cont home meds hld: -cont statin pafib: -on xarelto
--- NOTE | 2018-10-30 13:22 | PN ---
Progress Note (short form) - Note Progress Note: PULMONARY Some dyspnea overnight. No cough or wheezing. Vital Signs Period Temp Pulse Resp BP Sys/Nunez Pulse Ox Last 24 Hr 97 F-98.1 F 83-100 18-22 94-122/55-78 94 Gen: mildly tachypneic with speaking Heart: RRR Lung: basilar rales Abd: soft, nontender Ext: no edema CBC, BMP 10/27/18 05:30 10/29/18 06:50 Active Medications Acetaminophen (Tylenol -) 650 mg PO Q6H PRN PRN Reason: PAIN LEVEL 6-10 Last Admin: 10/27/18 15:56 Dose: 650 mg Amino Acids (Prosource No Carb Liquid Pkt) 30 ml PO BID@0800,1730 [facility] Last Admin: 10/30/18 10:14 Dose: 30 ml Carvedilol (Coreg -) 25 mg PO BID [facility] Last Admin: 10/30/18 10:16 Dose: 25 mg Diphenhydramine HCl (Benadryl -) 25 mg PO HS PRN PRN Reason: INSOMNIA Finasteride (Proscar -) 5 mg PO DAILY [facility] Last Admin: 10/30/18 10:16 Dose: 5 mg Furosemide (Lasix Injection -) 100 mg IVPB BID@0600,1400 [facility] Last Admin: 10/30/18 06:38 Dose: 100 mg Glipizide (Glucotrol -) 10 mg PO BIDAC [facility] Last Admin: 10/30/18 10:14 Dose: 10 mg Levothyroxine Sodium (Synthroid -) 50 mcg PO DAILY@0700 [facility] Last Admin: 10/30/18 06:38 Dose: 50 mcg Multivitamins/Minerals/Vitamin C (Tab-A-Vit -) 1 tab PO DAILY [facility] Last Admin: 10/30/18 10:17 Dose: 1 tab Rivaroxaban (Xarelto -) 20 mg PO DAILY@1800 [facility] Last Admin: 10/29/18 18:16 Dose: 20 mg Sacubitril/Valsartan (Entresto 24 Mg-26 Mg Tablet) 1 tab PO BID [facility] Last Admin: 10/30/18 10:16 Dose: 1 tab Senna (Senna -) 2 tab PO HS [facility] Last Admin: 10/29/18 21:51 Dose: Not Given Spironolactone (Aldactone -) 25 mg PO DAILY [facility] Last Admin: 10/30/18 10:15 Dose: 25 mg Tamsulosin HCl (Flomax -) 0.4 mg PO DAILY@0830 [facility] Last Admin: 10/30/18 10:15 Dose: 0.4 mg A/P Acute on Chronic Systolic Heart Failure Mitral Regurgitation Paroxysmal Atrial Fibrilation CAD s/p CABG HTN DM Hyperlipidemia h/o CVA - continue lasix, aldactone, zaroxolyn - monitor urine output, creatinine - continue entresto - rate control - continue anticoagulation - O2 to keep SpO2>90%
[2018-10-30 13:29] VITALS: TEMP 98.1
[2018-10-30 14:07] LABS: ANION GAP 11 MMOL/L (8-16); BLOOD UREA NITROGEN 61 mg/dL (7-18); CALCIUM 8.2 mg/dL (8.5-10.1); CHLORIDE 104 mmol/L (98-107); CO2 22 mmol/L (21-32); CREATININE 0.8 mg/dL (0.55-1.3); GLUCOSE,RANDOM 102 mg/dL (74-106); POTASSIUM 4.8 mmol/L (3.5-5.1); SODIUM 137 mmol/L (136-145)
--- NOTE | 2018-10-30 15:00 | PN ---
Progress Note, Physician History of Present Illness: Pt seen and examined at bedside. He still has shortness of breath with ambulation. - Current Medication List Current Medications: Active Medications Acetaminophen (Tylenol -) 650 mg PO Q6H PRN PRN Reason: PAIN LEVEL 6-10 Last Admin: 10/27/18 15:56 Dose: 650 mg Amino Acids (Prosource No Carb Liquid Pkt) 30 ml PO BID@0800,1730 [facility] Last Admin: 10/30/18 10:14 Dose: 30 ml Carvedilol (Coreg -) 25 mg PO BID [facility] Last Admin: 10/30/18 10:16 Dose: 25 mg Diphenhydramine HCl (Benadryl -) 25 mg PO HS PRN PRN Reason: INSOMNIA Finasteride (Proscar -) 5 mg PO DAILY [facility] Last Admin: 10/30/18 10:16 Dose: 5 mg Furosemide (Lasix Injection -) 100 mg IVPB BID@0600,1400 [facility] Last Admin: 10/30/18 06:38 Dose: 100 mg Glipizide (Glucotrol -) 10 mg PO BIDAC [facility] Last Admin: 10/30/18 10:14 Dose: 10 mg Levothyroxine Sodium (Synthroid -) 50 mcg PO DAILY@0700 [facility] Last Admin: 10/30/18 06:38 Dose: 50 mcg Multivitamins/Minerals/Vitamin C (Tab-A-Vit -) 1 tab PO DAILY [facility] Last Admin: 10/30/18 10:17 Dose: 1 tab Rivaroxaban (Xarelto -) 20 mg PO DAILY@1800 [facility] Last Admin: 10/29/18 18:16 Dose: 20 mg Sacubitril/Valsartan (Entresto 24 Mg-26 Mg Tablet) 1 tab PO BID [facility] Last Admin: 10/30/18 10:16 Dose: 1 tab Senna (Senna -) 2 tab PO HS [facility] Last Admin: 10/29/18 21:51 Dose: Not Given Spironolactone (Aldactone -) 25 mg PO DAILY [facility] Last Admin: 10/30/18 10:15 Dose: 25 mg Tamsulosin HCl (Flomax -) 0.4 mg PO DAILY@0830 [facility] Last Admin: 10/30/18 10:15 Dose: 0.4 mg - Objective Vital Signs: Vital Signs Temperature 98.1 F 10/30/18 13:28 Pulse Rate 91 H 10/30/18 13:28 Respiratory Rate 18 10/30/18 13:28 Blood Pressure 97/61 10/30/18 13:28 O2 Sat by Pulse Oximetry (%) 94 L 10/29/18 20:43 Constitutional: Yes: Calm Eyes: Yes: Conjunctiva Clear HENT: Yes: Atraumatic Cardiovascular: Yes: JVD, S1, S2 Respiratory: Yes: Rhonchi Gastrointestinal: Yes: Soft Genitourinary: Yes: WNL Musculoskeletal: Yes: Back Pain Edema: Yes Edema: LLE: 2+, RLE: 2+ Neurological: Yes: Oriented Psychiatric: Yes: Oriented Labs: CBC, BMP 10/27/18 05:30 10/30/18 06:30 Problem List - Problems (1) Proteinuria Code(s): R80.9 - PROTEINURIA, UNSPECIFIED (2) Azotemia Code(s): R79.89 - OTHER SPECIFIED ABNORMAL FINDINGS OF BLOOD CHEMISTRY (3) Acute exacerbation of CHF (congestive heart failure) Code(s): I50.9 - HEART FAILURE, UNSPECIFIED (4) Afib Code(s): I48.91 - UNSPECIFIED ATRIAL FIBRILLATION (5) CVA (cerebral vascular accident) Code(s): I63.9 - CEREBRAL INFARCTION, UNSPECIFIED (6) Congestive heart failure Code(s): I50.9 - HEART FAILURE, UNSPECIFIED Qualifiers: Heart failure type: other Qualified Code(s): I50.9 - Heart failure, unspecified (7) Edema Code(s): R60.9 - EDEMA, UNSPECIFIED Qualifiers: Edema type: unspecified Qualified Code(s): R60.9 - Edema, unspecified Assessment/Plan Current Medications Generic Name Dose Route Start Last Admin Trade Name Freq PRN Reason Stop Dose Admin Acetaminophen 650 mg 10/27/18 15:45 10/27/18 15:56 Tylenol - PO 650 mg Q6H PRN Administration PAIN LEVEL 6-10 Amino Acids 30 ml 10/25/18 17:30 10/30/18 10:14 Prosource No Carb Liquid Pkt PO 30 ml BID@0800,1730 [facility] Administration Carvedilol 25 mg 10/24/18 10:00 10/30/18 10:16 Coreg - PO 25 mg BID [facility] Administration Diphenhydramine HCl 25 mg 10/29/18 17:46 Benadryl - PO HS PRN INSOMNIA Finasteride 5 mg 10/24/18 10:00 10/30/18 10:16 Proscar - PO 5 mg DAILY [facility] Administration Furosemide 100 mg 10/28/18 14:00 10/30/18 06:38 Lasix Injection - IVPB 100 mg BID@0600,1400 [facility] Administration Glipizide 10 mg 10/24/18 10:00 10/30/18 10:14 Glucotrol - PO 10 mg BIDAC [facility] Administration Levothyroxine Sodium 50 mcg 10/24/18 07:00 10/30/18 06:38 Synthroid - PO 50 mcg DAILY@0700 [facility] Administration Multivitamins/Minerals/Vitamin C 1 tab 10/24/18 10:00 10/30/18 10:17 Tab-A-Vit - PO 1 tab DAILY [facility] Administration Rivaroxaban 20 mg 10/28/18 18:00 10/29/18 18:16 Xarelto - PO 20 mg DAILY@1800 [facility] Administration Sacubitril/Valsartan 1 tab 10/24/18 10:00 10/30/18 10:16 Entresto 24 Mg-26 Mg Tablet PO 1 tab BID [facility] Administration Senna 2 tab 10/28/18 22:00 10/29/18 21:51 Senna - PO Not Given HS [facility] Spironolactone 25 mg 10/24/18 10:00 10/30/18 10:15 Aldactone - PO 25 mg DAILY [facility] Administration Tamsulosin HCl 0.4 mg 10/24/18 08:30 10/30/18 10:15 Flomax - PO 0.4 mg DAILY@0830 [facility] Administration Impression 1. azotemia 2. proteinuria 3. chf 4. a-fib 5. hypothyroidism 6. CKD Plan - pt is being transferred to [facility] - pt has significant proteinuria which should be worked up, pt and family aware - no great change from yesterday - cont with lasix - keep on arb - will follow - remains volume overloaded Dr Rae
[2018-10-30 17:42] VITALS: BP 117/73; PULSE 89
--- NOTE | 2018-10-31 08:34 | DS ---
Physical Examination Vital Signs: Vital Signs Temperature 98.1 F 10/30/18 13:28 Pulse Rate 89 10/30/18 17:41 Respiratory Rate 22 H 10/30/18 17:41 Blood Pressure 117/73 10/30/18 17:41 O2 Sat by Pulse Oximetry (%) 93 L 10/30/18 09:00 Labs: CBC, BMP 10/27/18 05:30 10/30/18 06:30 Discharge Summary Reason For Visit: CONGESTIVE HEART FAILURE/PLEURAL EFFUSION ON RIGHT Condition: Stable - Instructions Disposition: TRANSFER ACUTE CARE/OTHER HOSP - Home Medications Comprehensive Discharge Medication List: Ambulatory Orders Carvedilol 25 mg PO BID tablet 01/09/17 Spironolactone 25 mg PO DAILY tablet 01/09/17 Multivitamins [Multivit ([facility] Formul[facility])] 1 tab PO DAILY 01/06/18 Rivaroxaban [Xarelto -] 20 mg PO DAILY 01/06/18 Ubidecarenone [Coq-10] 1 each PO BID 01/06/18 Levothyroxine [Synthroid -] 50 mcg PO DAILY 01/09/18 Sacubitril/Valsartan [Entresto 24 mg-26 mg Tablet] 1 each PO BID 07/02/18 Tramadol HCl 50 mg PO PRN PRN 10/24/18 Acetaminophen [Tylenol .Regular Strength -] 650 mg PO Q6H PRN tablet 10/30/18 Albuterol 2.5/Ipratropium 0.5 [Duoneb -] 1 amp NEB RQID amp 10/30/18 Amino Acids/Protein Hydrolys [Prosource No Carb Liquid Pkt] 30 ml PO BID@0800, 1730 packet 10/30/18 Diphenhydramine HCl [Benadryl Capsule -] 25 mg PO HS PRN capsule 10/30/18 Sennosides [Senna -] 2 tab PO HS tablet 10/30/18
== END 2018-10-30 17:31 | disposition short-term general hospital (02) | DRG 291 ==
LOC: JER 17:31 → JERBED 10-24 02:11 → J4S 10-24 14:10
PROVIDERS: ADMIT Family Medicine; ATTEND Family Medicine
DX: I13.0 Hypertensive heart and chronic kidney disease with heart failure and stage 1 through stage 4 chronic kidney disease, or unspecified chronic kidney disease (principal); I50.23 Acute on chronic systolic (congestive) heart failure; J98.11 Atelectasis; I47.2 Ventricular tachycardia; R80.9 Proteinuria, unspecified; E11.22 Type 2 diabetes mellitus with diabetic chronic kidney disease; N18.9 Chronic kidney disease, unspecified; I48.0 Paroxysmal atrial fibrillation; I25.5 Ischemic cardiomyopathy; I36.1 Nonrheumatic tricuspid (valve) insufficiency; E88.09 Other disorders of plasma-protein metabolism, not elsewhere classified; E03.9 Hypothyroidism, unspecified; R91.1 Solitary pulmonary nodule; Z86.73 Personal history of transient ischemic attack (TIA), and cerebral infarction without residual deficits; E78.5 Hyperlipidemia, unspecified; I25.2 Old myocardial infarction; Z95.0 Presence of cardiac pacemaker; Z95.1 Presence of aortocoronary bypass graft; I25.10 Atherosclerotic heart disease of native coronary artery without angina pectoris; H91.90 Unspecified hearing loss, unspecified ear; M48.061 Spinal stenosis, lumbar region without neurogenic claudication; I27.20 Pulmonary hypertension, unspecified
CPT/HCPCS: 36415; 71045-TC-FY; 71250-TC; 76775-TC; 76856-TC; 80048; 80053; 81003; 81015; 82550; 82553; 82570; 82962; 83735; 83880; 84100; 84156; 84484; 85025; 85027; 85651; 86140; 93005; 93010; 93306-TC; 94640; 97116-GP; 97161-GP; 99285-25